=== PATIENT | female | born 1965 | race Caucasian/White ===

== ENCOUNTER → 2022-05-06 15:35 | Outpatient (CLI) | payer OTHER, SELFPAY ==
--- NOTE | ~2022-05-06 | XR_ITS ---
XR chest 2V DATE: 05/06/2022 15:54 INDICATION: Cough TECHNIQUE: 2 views COMPARISON: 09/09/2011 PA and lateral chest FINDINGS: Normal heart size. No hilar or mediastinal enlargement. No pulmonary infiltrate or consolid ation, pleural effusion or pulmonary vascular congestion or pneumothorax. Osteopenia. IMPRESSION: No active cardiopulmonary disease Reviewed, dictated and finalized at location A. SR
== END ==
PROVIDERS: PCP Family Medicine Adolescent Medicine; Visit Provider Physician Assistant
DX: R05.9 Cough, unspecified (principal)
CPT/HCPCS: 71046

== ENCOUNTER 2023-09-16 08:16 | Outpatient (CLI) | payer OTHER, SELFPAY ==
--- NOTE | ~2023-09-16 | NM_ITS ---
EXAMINATION: NM carline stress w perfusion DATE: 09/16/2023 10:43 INDICATION: Other forms of dyspnea. Chest pain. TECHNIQUE: Rest images were obtained following intravenous administration of 9.9 mCi Tc99m tetrofosmi n (Myoview). The patient was infused intravenously with Lexiscan (regadenoson). Then, 29.7 mCi Tc99m tetrofosmin (Myoview) was administered intravenously, and stress images were obtained. Data was recon structed into short axis and horizontal and vertical long axis SPECT images. Gated SPECT images were also obtained. COMPARISON: None. FINDINGS: There is no definite reversible or fixed perfusion abnormality to suggest ischemia or infar ction. There is no segmental wall motion abnormality. Left ventricular ejection fraction measures 6 7%. IMPRESSION: 1. No definite ischemia or infarct. 2. Normal left ventricular ejection fraction measuring 67%. Reviewed, dictated and finalized at location A.
--- NOTE | 2023-09-16 08:26 | EST_ITS ---
Patient Info Name: Karen Troncoso Age: 58 years : 1965 Gender: Female Ht: 59 in Wt: 130 lbs BSA: 1.58 m2 HR: 88 bpm BP: 182 / 112 mmHg Heart Rhythm: Sinus Rhythm Exam Date: 09/16/2023 9:47 AM Exam Location: Echo Lab Patient Status: Outpatient Admit Date: 09/16/2023 Staff Ordering Physician: Katie Ohara APRN Attending Provider: Katie Ohara APRN Exercise Technologist: Kelly Reyes CT Exercise Physician: Gaston Manuel DO Exam Type: CA stress carline w NM Study Info Indications R06.09 - Other forms of dyspnea A regadenoson stress test was performed. Summary 1. 1. Negative lexiscan stress test for ischemic ST changes by ECG criteria. 2. 2. Baseline hypertension. 3. 3. Nuclear scan to follow and will be reported separately. Please correlate with it. 4. 4. Patient informed of the above results. Protocol: Lexiscan Stress ECG Details Stage: REST Duration (min): 5 min : 13 sec HR (bpm): 85 SBP (mmHg): 182 DBP (mmHg): 112 Stage: REST Duration (min): 15 min : 16 sec HR (bpm): 89 SBP (mmHg): 182 DBP (mmHg): 112 Stage: STAGE 1 Duration (min): 0 min : 59 sec HR (bpm): 104 SBP (mmHg): 181 DBP (mmHg): 119 Stage: RECOVERY Duration (min): 1 min : 0 sec HR (bpm): 107 SBP (mmHg): 181 DBP (mmHg): 119 Stage: RECOVERY Duration (min): 2 min : 0 sec HR (bpm): 103 SBP (mmHg): 181 DBP (mmHg): 119 Stage: RECOVERY Duration (min): 3 min : 0 sec HR (bpm): 99 SBP (mmHg): 178 DBP (mmHg): 116 Stage: RECOVERY Duration (min): 3 min : 6 sec HR (bpm): 94 SBP (mmHg): 178 DBP (mmHg): 116 Rest HR: 89 bpm Peak HR: 107 bpm Rest Sys BP: 182 mmHg Peak Sys BP: 181 mmHg Max Pred HR: 163 bpm % Max Pred HR: 66 % Target HR: 139 bpm Max RPP: 19,367 bpm*mmHg Termination Reason: Completed protocol Cardiac Symptoms: Shortness of breath Total Time: 1 min : 0 sec Rest Wilkins BP: 112 mmHg Peak Wilkins BP: 119 mmHg Total Dose: 0.4 mg Resting ECG Sinus rhythm. Stress ECG No ST changes. Arrhythmias None. Report Signatures
== END 2023-09-16 08:17 | disposition home or self-care (01) ==
LOC: ANHCARD 08:18
PROVIDERS: PCP Family Medicine Adolescent Medicine; Visit Provider Nurse Practitioner Family
DX: R06.09 Other forms of dyspnea (principal); I10 Essential (primary) hypertension
CPT/HCPCS: 78452; 93017; A9502; J2785

== ENCOUNTER 2023-09-25 16:24 | Emergency (ER) | payer OTHER, SELFPAY ==
--- NOTE | ~2023-09-25 | CT_ITS ---
EXAMINATION: CT abdomen pelvis w con DATE: 09/25/2023 17:39 INDICATION: Constipation. TECHNIQUE: Computed tomography (CT) of the abdomen and pelvis was performed with 100 mL Omnipaque 350 intravenous contrast. Automated exposure control and iterative reconstruction technique were employe d. The dose-length product was 301.08 mGy-cm. COMPARISON: None. FINDINGS: The visualized portions of the lung bases are clear without pneumonia or pleural effusion. The heart size is normal. No pericardial effusion. There is a small sliding hiatal hernia. The liver, gallbladder, spleen, pancreas, adrenal glands, and right kidney are normal. There is a 10 mm cyst in left kidney. The appendix is normal. There are no pathologically enlarged lymph nodes. There is no f ree intraperitoneal fluid. Aortic atherosclerosis is noted. There is mild thoracic and lumbar spondyl osis. There is osteonecrosis of the femoral heads. IMPRESSION: 1. Small sliding hiatal hernia. Reviewed, dictated and finalized at location E.
[2023-09-25 16:25] VITALS: BP 149/85; PULSE 95; RESP 16; TEMP 36.8; O2SAT 98
[2023-09-25 16:40] LABS: Basophils Absolute Auto 0.1 K/mm3 (0.0-0.1); Basophils Percent Auto 0.8 % (0.2-1.2); Eosinophils Absolute Auto 0.2 K/mm3 (0-0.3); Eosinophils Percent Auto 2.4 % (0-4.4); Hematocrit 40.6 % (37.0-47.0); Hemoglobin 13.4 g/dL (12.0-15.0); Immature Granulocyte Absolute 0.02 K/mm3 (0.00-0.031); Immature Granulocyte Percent A 0.3 % (0-0.5); Lymphocytes Absolute Auto 2.66 K/mm3 (0.9-3.2); Lymphocytes Percent Auto 36.9 % (18.3-44.2); Mean Platelet Volume 10.5 fl (7.4-10.4); Monocytes Absolute Auto 0.8 K/mm3 (0.1-0.6); Monocytes Percent Auto 10.6 % (2.6-8.5); Neutrophils Absolute Auto 3.5 K/mm3 (1.3-6.7); Platelet Count Result 331 k/mm3 (150-375); Red Blood Count 4.46 M/mm3 (4.2-5.4); Red Cell Distribution Width 14.5 % (11.5-14.5); White Blood Count 7.2 K/mm3 (4.5-10.0)
[2023-09-25 16:52] LABS: Alanine Aminotransferase 41 U/L (6-35); Albumin Level 4.4 g/dL (3.5-5.1); Alkaline Phosphatase 130 U/L (38-126); Anion Gap 7 mmol/L (4-12); Aspartate Amino Transferase 49 U/L (14-36); Bilirubin,Total 0.5 mg/dL (0.2-1.3); Blood Urea Nitrogen 6 mg/dL (7-17); Carbon Dioxide 27 mmol/L (22-30); Chloride 102 mmol/L (98-107); Estimated Glomerular Filt Rate > 60; Glucose 102 mg/dL (65-110); Lipase 117 U/L (23-300); Sodium 136 mmol/L (137-145)
[2023-09-25 17:13] LABS: Appearance Urine Clear (Clear); Bilirubin Urine Negative (Negative); Blood Urine Negative (Negative); Color Urine Yellow (Yellow); Glucose Urine UA Negative (Negative); Ketones Urine Negative (Negative); Leukocyte Esterase Ur Negative LEU/UL (Negative); Nitrate Urine Negative (Negative); Protein Urine Negative (Negative); Urobilinogen Urine 0.2 mg/dL (<2.0); pH Urine 8.5 (5.0-9.0)
[2023-09-25 17:14] LABS: Add Urine Microscopic? NO; Specific Grav Ur 1.004 (1.001-1.035)
--- NOTE | 2023-09-25 17:15 | ED.ABDPAIN ---
HPI - Abdominal Pain General Chief Complaint: Abdominal Pain Stated Complaint: major abd issues Time Seen by Provider: 09/25/23 17:04 History of Present Illness HPI narrative: 58-year-old female with a history of bipolar disorder, hyperlipidemia, hypertension presents to the ED for constipation for 9 days. Patient states she has not had full mild movement in 9 days reports generalized abdominal bloating and intermittent pains in her left lower and right lower quadrants. States she has not passed gas in quite a while. She reports having surgeries on her pelvic floor for a prolapse, bilateral oophorectomy and breast surgery. She is reporting some nausea and an episode of emesis yesterday. She denies chest pain or shortness of breath, dysuria hematuria, fever. States she has tried magnesium citrate, enema and p.o. magnesium without any improvement. She has been having some very small firm pebble like stools, her last one was today. Related Data Home Medications Medication Instructions Recorded Confirmed bupropion HCl 100 mg tablet 100 mg PO BID 08/03/21 09/22/23 magnesium 500 mg tablet 500 mg PO BID 09/22/23 09/22/23 melatonin 1.5 mg tablet 3 mg PO HS 09/22/23 09/22/23 Allergies Allergy/AdvReac Type Severity Reaction Status Date / Time No Known Allergies Allergy Mild Verified 09/25/23 16:34 Review of Systems Review of Systems: CONSTITUTIONAL: Denies fever, chills, or sweats. EYES: Denies visual changes, redness, or discharge. ENT: Denies rhinorrhea, congestion, sore throat, or otalgia. CARDIOVASCULAR: Denies chest pain, palpitations, or edema. RESPIRATORY: Denies cough or dyspnea. GASTROINTESTINAL: See HPI GENITOURINARY: Denies dysuria or hematuria. SKIN: Denies rash or itching. MUSCULOSKELETAL: Denies back pain, joint pain, or myalgia. NEUROLOGIC: Denies headache, numbness, or weakness. PSYCHIATRIC: Denies anxiety or depression. [facility] Surgical History Surgical History History of oophorectomy Bilateral at age 39 History of rectal surgery prolapse repair Family History Family History Mother Family history of Alzheimer's disease Sibling Heart disease 2 brothers with CAD and quadruple bypasses in their 50s Other Hypertension Social History Social History Years smoked: 7 Smoking status: Current every day smoker Tobacco type: cigarettes and e-cigarettes/vaping Additional smoking assessment comments: VAPING 12 YEARS NOW Alcohol intake: former Alcohol use details: Patient currently drinks 750 mL bottle Vodka every 24 hours for the past 3 years. Substance use: former Substance use type: does not use Lack of Transportation: No Lack of Food: Sometimes True Concerned About Future Housing: No Difficulty Paying Gas/Electric Bills: No Difficulty Paying for Meds: No Currently Unemployed: No Education: Associate Degree Difficulty w/ Childcare or Family Care: No Living arrangements: with family Additional living arrangements comments: Lives with partner Gender identity (if verbalized by the patient): Female Sexual Orientation (if Verbalized by the Patient): Lesbian, Mondragon, or Homosexual Spiritual care concerns: No Agree to blood products: Yes Exam Narrative: GENERAL: Well-appearing, well-nourished, and in no acute distress. HEAD: Normocephalic, atraumatic. EYES: PERRLA and EOMI. ENT: Nares clear, no rhinorrhea or epistaxis. Mucous membranes moist. NECK: Supple. CHEST: Clear to auscultation. No respiratory distress. HEART: Regular rate and rhythm. No murmur heard. Normal peripheral pulses. ABDOMEN: Hyperactive bowel sounds. Abdomen soft with mild tenderness in the right lower quadrant and left lower quadrants. No rebound, guarding or rigidity. No CVA tenderness. EXTREMITIES: Normal rang
== END 2023-09-25 19:15 | disposition home or self-care (01) ==
PROVIDERS: Emergency Medicine; Emergency Provider Physician Assistant; PCP Family Medicine Adolescent Medicine
DX: K59.00 Constipation, unspecified (principal); K44.9 Diaphragmatic hernia without obstruction or gangrene; F17.210 Nicotine dependence, cigarettes, uncomplicated
CPT/HCPCS: 36415; 74177; 80053; 81003; 83690; 85025; 99284; Q9967

== ENCOUNTER 2023-09-27 00:54 | Day surgery (SDC) | payer OTHER, SELFPAY ==
[2023-09-22 10:37] VITALS: BMI 26.2
[2023-09-27 11:53] VITALS: BP 171/93; PULSE 84; RESP 19; TEMP 36.5; O2SAT 98
[2023-09-27] MEDS: LACTATED RINGERS 1,000 ML 150 ML IV CONT (12:02)
--- NOTE | 2023-09-27 12:29 | WPDANESEPPF ---
Anes - Initial Pre Proc Eval Procedure: Operation Date: 09/27/23 13:00 Proposed Procedures p Esophagogastroduodenoscopy - Moo Davalos MD Date/Time: 09/27/23 12:29 Surgeon: Moo Davalos MD Pre Op Diagnosis: GERD, Melena Patient Data Age: 58 Gender: F Height: 1.5 m Weight: 60.2 kg Last Vital Signs Temp 97.7 F 09/27/23 11:53 Pulse 84 09/27/23 11:53 Resp 19 09/27/23 11:53 BP 171/93 H 09/27/23 11:53 Pulse Ox 98 09/27/23 11:53 O2 Del Method Room Air 09/27/23 11:53 Allergies Allergy/AdvReac Type Severity Reaction Status Date / Time No Known Allergies Allergy Mild Verified 09/27/23 11:52 Home Medications Medication Instructions Recorded Confirmed Type bupropion HCl 100 mg tablet 100 mg PO BID 08/03/21 09/22/23 History albuterol sulfate 2.5 mg/3 mL 2.5 mg (3 mL) inhalation Q6H PRN 04/28/22 09/22/23 Rx (0.083 %) solution for nebulization shortness of breath or wheezing #75 mL albuterol sulfate 90 mcg/actuation 2 inh inhalation Q4H PRN shortness 06/16/22 09/22/23 Rx aerosol inhaler of breath or wheezing #8.5 grams valacyclovir 1 gram tablet 2,000 mg PO Q12H 1 day #4 tabs 03/23/23 09/22/23 Rx paroxetine HCl 20 mg tablet 20 mg PO BID #180 tabs 04/06/23 09/22/23 Rx fluticasone propionate 50 1 spray intranasal DAILY #16 grams 05/25/23 09/22/23 Rx mcg/actuation nasal spray,suspension lisinopril 20 1 tablet PO DAILY #90 tabs 05/25/23 09/22/23 Rx mg-hydrochlorothiazide 12.5 mg tablet rosuvastatin 20 mg tablet 20 mg PO DAILY #90 tabs 05/25/23 09/22/23 Rx alprazolam 0.5 mg tablet 0.5 mg PO BID PRN anxiety #20 tabs 07/27/23 09/22/23 Rx alirocumab 75 mg/mL subcutaneous 75 mg subcut Q14D #2 mL 08/18/23 09/22/23 Rx pen injector (Praluent Pen) omeprazole 40 mg capsule,delayed See Rx Instructions .Route 08/18/23 09/22/23 Rx release .COMPLEX #180 caps magnesium 500 mg tablet 500 mg PO BID 09/22/23 09/22/23 History melatonin 1.5 mg tablet 3 mg PO HS 09/22/23 09/22/23 History docusate sodium 50 mg capsule 50 mg PO BID #20 caps 09/25/23 Rx ondansetron 4 mg disintegrating 4 mg PO Q8H #20 tabs 09/25/23 Rx tablet polyethylene glycol 3350 17 17 g PO DAILY #119 grams 09/25/23 Rx gram/dose oral powder Patient hx anesthesia problems: none Family hx anesthesia problems: none Results Review: All pre-operative results and documents have been reviewed as part of the pre-operative evaluation. [facility] Surgical History Surgical History History of oophorectomy Bilateral at age 39 History of rectal surgery prolapse repair Family History Family History Mother Family history of Alzheimer's disease Sibling Heart disease 2 brothers with CAD and quadruple bypasses in their 50s Other Hypertension Social History Social History Years smoked: 7 Smoking status: Current every day smoker Tobacco type: cigarettes and e-cigarettes/vaping Additional smoking assessment comments: VAPING 12 YEARS NOW Alcohol intake: former Alcohol use details: Patient currently drinks 750 mL bottle Vodka every 24 hours for the past 3 years. Substance use: former Substance use type: does not use Lack of Transportation: No Lack of Food: Sometimes True Concerned About Future Housing: No Difficulty Paying Gas/Electric Bills: No Difficulty Paying for Meds: No Currently Unemployed: No Education: Associate Degree Difficulty w/ Childcare or Family Care: No Living arrangements: with family Additional living arrangements comments: Lives with partner Gender identity (if verbalized by the patient): Female Sexual Orientation (if Verbalized by the Patient): Lesbian, Mondragon, or Homosexual Spiritual care concerns: No Agree to blood products: Yes [place] - Dave Fi
--- NOTE | 2023-09-27 12:48 | PM.HPGS ---
History of Present Illness History of Present Illness Consent: Risks, benefits, and alternatives have been discussed and questions answered. Patient agrees to proceed with procedure. Chief complaint: GERD Narrative: Karen Troncoso is a 58 year old female with gerd and non-cardiac chest pain Review of Systems Review of Systems: All systems reviewed & are unremarkable except as noted in HPI and below PMFSH Past Medical History Medical History (Updated 09/27/23 @ 12:50 by Moo Davalos MD) Non-cardiac chest pain Surgical History Surgical History History of oophorectomy Bilateral at age 39 History of rectal surgery prolapse repair Family History Family History Mother Family history of Alzheimer's disease Sibling Heart disease 2 brothers with CAD and quadruple bypasses in their 50s Other Hypertension Social History Social History Years smoked: 7 Smoking status: Current every day smoker Tobacco type: cigarettes and e-cigarettes/vaping Additional smoking assessment comments: VAPING 12 YEARS NOW Alcohol intake: former Alcohol use details: Patient currently drinks 750 mL bottle Vodka every 24 hours for the past 3 years. Substance use: former Substance use type: does not use Lack of Transportation: No Lack of Food: Sometimes True Concerned About Future Housing: No Difficulty Paying Gas/Electric Bills: No Difficulty Paying for Meds: No Currently Unemployed: No Education: Associate Degree Difficulty w/ Childcare or Family Care: No Living arrangements: with family Additional living arrangements comments: Lives with partner Gender identity (if verbalized by the patient): Female Sexual Orientation (if Verbalized by the Patient): Lesbian, Mondragon, or Homosexual Spiritual care concerns: No Agree to blood products: Yes Meds Home Medications and Allergies Home Medications Medication Instructions Recorded Confirmed Type bupropion HCl 100 mg tablet 100 mg PO BID 08/03/21 09/22/23 History albuterol sulfate 2.5 mg/3 mL 2.5 mg (3 mL) inhalation Q6H PRN 04/28/22 09/22/23 Rx (0.083 %) solution for nebulization shortness of breath or wheezing #75 mL albuterol sulfate 90 mcg/actuation 2 inh inhalation Q4H PRN shortness 06/16/22 09/22/23 Rx aerosol inhaler of breath or wheezing #8.5 grams valacyclovir 1 gram tablet 2,000 mg PO Q12H 1 day #4 tabs 03/23/23 09/22/23 Rx paroxetine HCl 20 mg tablet 20 mg PO BID #180 tabs 04/06/23 09/22/23 Rx fluticasone propionate 50 1 spray intranasal DAILY #16 grams 05/25/23 09/22/23 Rx mcg/actuation nasal spray,suspension lisinopril 20 1 tablet PO DAILY #90 tabs 05/25/23 09/22/23 Rx mg-hydrochlorothiazide 12.5 mg tablet rosuvastatin 20 mg tablet 20 mg PO DAILY #90 tabs 05/25/23 09/22/23 Rx alprazolam 0.5 mg tablet 0.5 mg PO BID PRN anxiety #20 tabs 07/27/23 09/22/23 Rx alirocumab 75 mg/mL subcutaneous 75 mg subcut Q14D #2 mL 08/18/23 09/22/23 Rx pen injector (Praluent Pen) omeprazole 40 mg capsule,delayed See Rx Instructions .Route 08/18/23 09/22/23 Rx release .COMPLEX #180 caps magnesium 500 mg tablet 500 mg PO BID 09/22/23 09/22/23 History melatonin 1.5 mg tablet 3 mg PO HS 09/22/23 09/22/23 History docusate sodium 50 mg capsule 50 mg PO BID #20 caps 09/25/23 Rx ondansetron 4 mg disintegrating 4 mg PO Q8H #20 tabs 09/25/23 Rx tablet polyethylene glycol 3350 17 17 g PO DAILY #119 grams 09/25/23 Rx gram/dose oral powder Allergies Allergy/AdvReac Type Severity Reaction Status Date / Time No Known Allergies Allergy Mild Verified 09/27/23 11:52 Vital Signs Vital Signs - 24 hr 09/27/23 11:53 Temperature 97.7 F Pulse Rate 84 Respiratory Rate 19 Blood Pressure 171/93 H Pulse Oximetry 98 Oxygen Delivery
[2023-09-27 13:00] VITALS: BP 131/78; PULSE 82; RESP 21; O2SAT 98
[2023-09-27 13:10] VITALS: BP 135/86; PULSE 83; RESP 19; O2SAT 98
[2023-09-27 13:20] VITALS: BP 163/99; PULSE 81; RESP 19; O2SAT 98
== END 2023-09-27 13:36 | disposition home or self-care (01) ==
PROVIDERS: PCP Family Medicine Adolescent Medicine; Visit Provider Internal Medicine Gastroenterology
PROC: 0DJ08ZZ Inspection of Upper Intestinal Tract, Via Natural or Artificial Opening Endoscopic (ICD-10-PCS; CPT 43235; principal; 2023-09-27 13:00)
DX: K29.80 Duodenitis without bleeding (principal); K29.50 Unspecified chronic gastritis without bleeding; K44.9 Diaphragmatic hernia without obstruction or gangrene; Z79.51 Long term (current) use of inhaled steroids
CPT/HCPCS: 43239; 88305; J2704; J7120

== ENCOUNTER 2023-11-01 08:41 | Outpatient (CLI) | payer OTHER, SELFPAY ==
--- NOTE | ~2023-11-01 | US_ITS ---
Limited Abdominal Sonogram: Real-time sonographic imaging of the right upper quadrant was performed. Clinical History: Epigastric pain Findings: The liver appears normal with no evidence of mass lesion or bile duct dilatation. Main por balta vein demonstrates normal direction of flow. The gallbladder is well distended, and appears normal with no evidence of gallstone or wall thickening. The common bile duct measures 4 mm. The visualize d pancreas, aorta, and IVC are unremarkable. Impression: No significant abnormality seen. Reviewed, dictated and finalized at location . Impression: No significant abnormality seen.
== END 2023-11-01 08:42 ==
LOC: GOSHIMG 08:41
PROVIDERS: PCP Family Medicine Adolescent Medicine; Visit Provider Surgery
DX: R10.13 Epigastric pain (principal)
CPT/HCPCS: 76705

== ENCOUNTER 2023-11-07 12:11 | Outpatient (CLI) | payer OTHER, SELFPAY ==
--- NOTE | ~2023-11-07 | NM_ITS ---
EXAMINATION: NM hepatobiliary w pharm DATE: 11/07/2023 14:37 INDICATION: Epigastric pain COMPARISON: None. TECHNIQUE: 5 mCi Tc-99m mebrofenin (Choletec) was administered intravenously. Scintigraphic images o f the abdomen were obtained for one hour. 1.3 mcg sincalide (Kinevac) was administered by slow intrav enous infusion, and imaging was continued for 30 minutes. Gallbladder ejection fraction was calculate d by the technologist. FINDINGS: There is normal clearance of radiotracer from the blood pool. There is homogeneous tracer uptake by t he liver. Activity progresses to the gallbladder and bowel. The gallbladder ejection fraction (GBEF) is 19% (normal 10-90%, but most patient with gallbladder dysfunction have GBEF < 35% which does over lap with the normal range). IMPRESSION: 1. Gallbladder ejection fraction is at the lower limits of normal. This could be normal but is also within the range of overlap with gallbladder dysfunction or chronic cholecystitis in the appropriate clinical setting. Reviewed, dictated and finalized at location A.
== END 2023-11-07 12:12 | disposition home or self-care (01) ==
LOC: ANHIMG 12:14
PROVIDERS: PCP Family Medicine Adolescent Medicine; Visit Provider Surgery
DX: R10.13 Epigastric pain (principal)
CPT/HCPCS: 78227; A9537; J2805

== ENCOUNTER 2023-12-13 11:26 | Outpatient (CLI) | payer OTHER, SELFPAY ==
[2023-12-13 12:28] LABS: Alanine Aminotransferase 32 U/L (6-35); Albumin Level 4.2 g/dL (3.5-5.1); Alkaline Phosphatase 152 U/L (38-126); Amylase 56 U/L (30-110); Aspartate Amino Transferase 41 U/L (14-36); Bilirubin,Total 0.6 mg/dL (0.2-1.3); Lipase 84 U/L (23-300)
== END 2023-12-13 11:27 | disposition home or self-care (01) ==
PROVIDERS: PCP Family Medicine Adolescent Medicine; Visit Provider Surgery
DX: K81.1 Chronic cholecystitis (principal); Z01.818 Encounter for other preprocedural examination
CPT/HCPCS: 36415; 80076; 82150; 83690

== ENCOUNTER 2023-12-15 01:52 | Day surgery (SDC) | payer OTHER, SELFPAY ==
--- NOTE | 2023-12-07 16:51 | SUR.PREOP ---
Report to the Outpatient Waiting Room, entrance under the green pavilion located off [facility], at time 1000 on date 12/15/23. Planned Procedure Time: 1200. Time changes happen often and if your time is changed the preop area will call you the afternoon before. - You and your visitor will be asked to self-screen and do not enter if you have any COVID symptoms. - A mask is optional within the hospital at this time. Patients may have clear liquids (water, carbonated beverages, clear teas, apple juice) until 3 hours prior to surgery with a maximum of 20 ounces. - NO CLEAR LIQUIDS AFTER 0900 - No food from midnight until time of surgery - Infants may have breast milk until 4 hours before surgery, formula 6 hours prior to surgery. - Children will be allowed to drink immediately following surgery. If applicable, please bring a bottle or sippy cup to assist with drinking. Juice, water, soda, and popsicles are readily available. For infants on formula, please bring formula the day of surgery. Pacifiers are allowed. Take the following medications with a SIP of water the morning of surgery: BUPROPION, PAROXETINE, TEMAZEPAM DO NOT STOP ANY OF YOUR OTHER PRESCRIPTION MEDICATIONS PRIOR TO SURGERY ?EXCEPT THE FOLLOWING Medications to discontinue per physician STOP VITAMINS & SUPPLEMENTS BEGINNING 12/12/23 Date to take last dose Please no make-up, nail mongolian, hairspray, perfume, deodorant, or body powder the day of surgery. No jewelry (including any body piercings) or valuables the day of surgery, leave them at home. Please take a shower or bath the night before, or the morning of, surgery with an antibacterial soap. Wear comfortable, loose fitting clothing. Children are encouraged to wear pajamas. - Jewelry must be removed prior to entering the operating room. Rings and piercings that are not removed may be cut off. - The hospital will not accept responsibility for valuables. - Please leave all valuables, including medications, at home the day of surgery. If you are going home after surgery, a licensed driver recruiter must drive you home. - NO public transportation without another adult if you receive anesthesia. - We recommend that an adult stay with you for 24 hours following discharge. - We also recommend that you do not drive, make important decision, drink alcoholic beverages, or take any drugs that were not prescribed by your health care provider for at least 24 hours after your discharge time. For Pediatric surgeries, we recommend two adults accompany the child home. Follow any additional instructions given to you from your surgeon. If you or anyone in your household have experienced Covid symptoms in the past week, please notify your surgeon or the nurse liaison at the phone number below for possible testing. Telephone instructions given to PARVEZ WOOD and asked if any additional questions and then verbalized understanding. Patient advised to call surgeon office or pre surgery nurse liaison [phone] if any additional questions.
[2023-12-07 17:06] VITALS: BMI 27.3
[2023-12-15] VITALS (10 sets, daily range): BP systolic 120–149; BP diastolic 71–98; PULSE 82–111; RESP 12–16; TEMP 36.5–37.2; O2SAT 90–97; BMI 26.2
[2023-12-15] MEDS: KETOROLAC 15 MG/ML VIAL (*BKC) IV PUSH (10:50)
[2023-12-15] MEDS: LACTATED RINGERS 1,000 ML 30 ML IV CONT ×2 (10:50→13:54)
[2023-12-15] MEDS: ACETAMINOPHEN 500 MG TABLET 1000 MG PO (10:50)
--- NOTE | 2023-12-15 11:21 | WPDANESEPPF ---
Anes - Initial Pre Proc Eval Procedure: Operation Date: 12/15/23 12:00 Proposed Procedures p Laparoscopic Cholecystectomy - Keyur Belle MD Date/Time: 12/15/23 11:21 Surgeon: Keyur Belle MD Pre Op Diagnosis: acalculous chronic cholecystitis Patient Data Age: 58 Gender: F Height: 1.5 m Weight: 59 kg Last Vital Signs Temp 97.7 F 12/15/23 10:59 Pulse 94 12/15/23 10:59 Resp 16 12/15/23 10:59 BP 143/80 H 12/15/23 10:59 Pulse Ox 97 12/15/23 10:59 Allergies Allergy/AdvReac Type Severity Reaction Status Date / Time No Known Allergies Allergy Mild Verified 12/07/23 17:01 Home Medications Medication Instructions Recorded Confirmed Type bupropion HCl 100 mg tablet 100 mg PO BID 08/03/21 12/07/23 History paroxetine HCl 20 mg tablet 20 mg PO BID #180 tabs 04/06/23 12/07/23 Rx omeprazole 40 mg capsule,delayed See Rx Instructions .Route 08/18/23 12/07/23 Rx release .COMPLEX #180 caps magnesium 500 mg tablet 500 mg PO BID 09/22/23 12/07/23 History melatonin 1.5 mg tablet 3 mg PO HS 09/22/23 12/07/23 History linaclotide 290 mcg capsule 290 mcg PO DAILY 1 month #30 caps 10/21/23 12/07/23 Rx (Linzess) alirocumab 75 mg/mL subcutaneous 75 mg subcut Q14D #2 mL 11/04/23 12/07/23 Rx pen injector (Praluent Pen) temazepam 15 mg capsule 15 mg PO QHS PRN sleep #30 caps 11/23/23 12/07/23 Rx valacyclovir 1 gram tablet 2,000 mg PO Q12H PRN BREAKOUT ON 12/07/23 12/07/23 History NOSE Laboratory Tests 12/15/23 10:36 Total Bilirubin Pending Direct Bilirubin Pending AST Pending ALT Pending Alkaline Phosphatase Pending Total Protein Pending Albumin Pending Patient hx anesthesia problems: none Family hx anesthesia problems: none Results Review: All pre-operative results and documents have been reviewed as part of the pre-operative evaluation. [facility] Past Medical History Medical History Anemia Anxiety Asthma GERD (gastroesophageal reflux disease) Hypertension IBS (irritable bowel syndrome) Non-cardiac chest pain Surgical History Surgical History History of oophorectomy Bilateral at age 39 History of rectal surgery prolapse repair Hx of breast reduction, elective ~ 2003 Family History Family History Mother Family history of Alzheimer's disease Sibling Heart disease 2 brothers with CAD and quadruple bypasses in their 50s Other Hypertension Social History Social History Years smoked: 7 Smoking status: Current every day smoker Tobacco type: cigarettes and e-cigarettes/vaping Additional smoking assessment comments: VAPING 12 YEARS NOW Alcohol intake: former Alcohol use details: SOBER SINCE 08/10/22 Substance use: never Substance use type: does not use Do You Feel Safe in your Home?: Yes Lack of Transportation: No Lack of Food: Sometimes True Current Housing: I Have Housing Concerned About Future Housing: No Difficulty Paying Gas/Electric Bills: No Difficulty Paying for Meds: No Currently Unemployed: No Education: Associate Degree Difficulty w/ Childcare or Family Care: No Living arrangements: with family Additional living arrangements comments: Lives with partner Gender identity (if verbalized by the patient): Female Sexual Orientation (if Verbalized by the Patient): Lesbian, Mondragon, or Homosexual Spiritual care concerns: No Agree to blood products: Yes Anes - Eval Final PreProcedure Day of Procedure 12/15/23 11:21 Patient weight: normal Heart: regular rate and rhythm Lungs: clear to auscultation Airway: Mallampati scale class III Neurological: alert and oriented Last oral intake: >/= 8 hours ASA classification: I
[2023-12-15 11:34] LABS: Alanine Aminotransferase 31 U/L (6-35); Alkaline Phosphatase 143 U/L (38-126); Aspartate Amino Transferase 44 U/L (14-36); Bilirubin,Total 0.6 mg/dL (0.2-1.3)
--- NOTE | 2023-12-15 12:20 | WPDHPUPDATE1 ---
History and Physical Update Update Date/Time: 12/15/23 12:20 History and Physical has been reviewed, including an updated exam of the patient. There are NO changes in the patient's condition. Risks, benefits, and alternatives have been discussed and questions answered. Patient agrees to proceed with procedure.
[2023-12-15] MEDS: ceFAZolin 2 GM/D5W 50 ML 2 GM/50 ML BAG IVPB (12:28)
[2023-12-15] MEDS: BUPIVACAINE/EPINEPHRINE 0.5% 10 ML VIAL 30 ML INFILTRATE (12:49)
[2023-12-15] MEDS: fentaNYL CITRATE INJ (*CRX) 100 MCG/2 ML VIAL 25 MCG IV PUSH ×8 (14:11→14:44)
--- NOTE | 2023-12-15 14:15 | P.OP_ITS ---
Procedure Note - Detailed Date of Procedure 12/15/23 Pre-op Diagnosis acalculous chronic cholecystitis Post-op Diagnosis Same Procedure Performed Laparoscopic cholecystectomy Surgeon Keyur Belle MD Last Sorter [facility] Anesthesia General and Local Indications Patient is a 58-year-old woman who is an alcoholic but has been abstinent for a year. She has been having abrupt onset of sharp epigastric abdominal pain associated with nausea and sometimes emesis. This can wake her up at night and also occurs sometimes after eating. She does have a hiatal hernia and heartburn symptoms but those have been improved with omeprazole 40 mg daily. She had ultrasound of her gallbladder which was normal. Her hepatobiliary scan with foam arm showed a low gallbladder ejection fraction of only 19%. She had an EGD which showed a moderate hiatal hernia but no esophagitis. She is taken to [facility] at this time for laparoscopic cholecystectomy for acalculous chronic cholecystitis. Findings Mild chronic inflammation, no stones noted. Liver appeared normal. No biliary ductal dilatation. Description of Procedure Patient was taken to surgery and induced into general anesthesia. The abdomen is prepped and draped. Trocars were placed in usual fashion using Zep Solar optical trocars and a 5 mm camera. The varies needle was used to introduce CO2 insufflation prior to any trocars. Patient was then placed in reverse Trendelenburg. The gallbladder was decompressed with a laparoscopic aspirator. The cholecystotomy was closed with a Vicryl endoloop. The gallbladder was then retracted anterosuperiorly. Dissection was carried out in the cholecystohepatic triangle. Cautery was used for hemostasis. The cystic duct and cystic artery were dissected out clearly. The gallbladder was dissected off the liver at its lower half. Critical view was achieved. We then securely clipped and divided the cystic duct and cystic artery. The gallbladder was then further dissected free of its attachments to the liver. Once was free, the gallbladder was placed in an Endo-Catch bag and retrieved easily through the 10 11 epigastric trocar site. The epigastric trocar was then replaced. We reviewed the gallbladder fossa and right upper quadrant. Irrigation and suctioning were carried out repeatedly. A little bit of additional cautery was used. Eventually all was quite dry with no evidence of bleeding or bile leakage. We then evacuated CO2 and removed the trocar sleeves. Skin wounds were closed with subcuticular 4-0 Monocryl skin suture. Patient was awakened and taken to recovery in good condition. Sponge and needle counts were correct x2. Estimated Blood Loss -5 Drains No Pathology Yes (Gallbladder) Complications None Condition Stable Disposition PACU [facility] Billing Surgery - Charge Forward: Surgery Billing (Laparoscopic cholecystectomy)
[2023-12-15] MEDS: oxyCODONE HCL (*CRX) 5 MG TAB IR PO (14:39)
[2023-12-15] MEDS: diphenhydrAMINE HCl INJ 50 MG/ML VIAL 12.5 MG IV PUSH (14:48)
[2023-12-15] MEDS: KETOROLAC 30 MG/ML VIAL (*BKC) IV PUSH (15:25)
== END 2023-12-15 16:26 | disposition home or self-care (01) ==
PROVIDERS: PCP Family Medicine Adolescent Medicine; Visit Provider Surgery
PROC: 0FT44ZZ Resection of Gallbladder, Percutaneous Endoscopic Approach (ICD-10-PCS; CPT 47562; principal; 2023-12-15 12:00)
DX: K81.1 Chronic cholecystitis (principal); I10 Essential (primary) hypertension; F41.9 Anxiety disorder, unspecified; D64.9 Anemia, unspecified; J45.909 Unspecified asthma, uncomplicated; K21.9 Gastro-esophageal reflux disease without esophagitis; K58.9 Irritable bowel syndrome, unspecified; F17.210 Nicotine dependence, cigarettes, uncomplicated; G89.18 Other acute postprocedural pain; Z79.51 Long term (current) use of inhaled steroids; Z79.85 Long-term (current) use of injectable non-insulin antidiabetic drugs; Z98.890 Other specified postprocedural states; Z82.49 Family history of ischemic heart disease and other diseases of the circulatory system
CPT/HCPCS: 47562; 36415; 80076; 82150; 83690; 88304; A9270; J0330; J0690; J1100; J1170; J1200; J1885; J2250; J2405; J2704; J3010; J7120

== ENCOUNTER 2024-05-30 11:30 | Outpatient (CLI) | payer OTHER, SELFPAY ==
--- NOTE | ~2024-05-30 | XR_ITS ---
Thoracic spine: Clinical Indication: Back pain AP and lateral views were performed. No fracture is seen. There is normal alignment of the vertebrae. The intervertebral disc spaces demo nstrate mild degenerative change throughout the thoracic spine. Paravertebral soft tissues appear nor mal. 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 Reviewed, dictated and finalized at [facility]. 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
--- OUTSIDE RECORDS SUMMARY | 2024-05-30 13:06 | XMS_ITS | Clinical Summary ---
Author Organization [facility] Address [facility] [place] [address] Care Team Providers Care Steam Setter Name Role Phone Rosi Bolanos MD Primary Care Provider [phone] Social History Tobacco Use Types Packs/Day Years Used Date Smoking Tobacco: Never Assessed Comments Unknown Sex and Gender Information Value Date Recorded Sex Assigned at Not on file Legal Sex Female 7:28 PM CDT Gender Identity Not on file Sexual Orientation Not on file Plan of Treatment Health Maintenance Due Date Last Done Comments Cervical Cancer Screening Pa p Smear (Age 30 to 64) Every 3 Years 1966 Colorectal Cancer Screening Colonoscopy (10 Years) 1966 Annual Physical 1969 Hepatitis C 02/27/1984 DTaP, Tdap and Td Vaccines ( 1 - Tdap) 1985 Hepatitis B Vaccines (1 of 3 - 19+ 3-dose series) 1985 Cervical Cancer Screening Pa p with HPV Testing (Age 30 to 64) Every 5 Years 02/27/1996 Cervical Cancer Screening with HPV 02/27/1996 Mammogram Screening 2006 Zoster Vaccines (1 of 2) 02/27/2016 COVID-19 Vaccine (2023-2 5 season) 2023 Influenza Adult (#1) 2024 Meningococcal B Vaccine Aged Out No l onger eligible based on patient's age to complete this topic Meningococcal Vaccine Aged Out No oziel koki eligible based on patient's age to complete this topic Pneumococcal Vaccine: Pediat rics (0 to 5 Years) and At-Risk Patients (6 to 64 Years) Aged Out No longer eligible b ased on patient's age to complete this topic RSV Immunizations Under 20 Months Aged Out No longer eligible based on patient's age to complete this topic Care Teams Steam Setter Relationship Specialty Start Date End Date Rosi Bolanos MD [address] [place] [address] [phone] PCP - General 06/11/10
== END 2024-05-30 11:31 | disposition home or self-care (01) ==
PROVIDERS: PCP Family Medicine Adolescent Medicine; Visit Provider Nurse Practitioner Family
DX: R07.89 Other chest pain (principal); M51.34 Other intervertebral disc degeneration, thoracic region; G89.29 Other chronic pain
CPT/HCPCS: 72070

== ENCOUNTER 2024-06-17 16:19 | Emergency (ER) | payer OTHER, SELFPAY ==
--- OUTSIDE RECORDS SUMMARY | 2024-06-17 16:21 | XMS_ITS | Clinical Summary ---
Author Organization [facility] Address [facility] [place] [address] Care Team Providers Care Rougher Helper Name Role Phone Rosi Bolanos MD Primary Care Provider [phone] Social History Tobacco Use Types Packs/Day Years [...] age to complete this topic Care Teams Rougher Helper Relationship Specialty Start Date End Date Rosi Bolanos MD [address] [place] [address] [phone] PCP - General 06/11/10
--- OUTSIDE RECORDS SUMMARY | 2024-06-17 16:21 | XMS_ITS | Patient Health Record ---
Author Organization [facility] Address [address] [place] [address] Care Team Providers Care Wardrobe Specialist Name Role Phone Salena Dorsey Primary Care Provider Allergies No Known Allergies Reason For Referral No Information Medications Medication SIG (Take, Route, Fr equency, Duration) Notes Start Date End Date Status Naltrexone HCl 50 MG TAKE 1 TABLET BY MO [facility] DAILY. START TAKING ONCE DAILY AT BEDTIME AFTER FINISHING COURSE OF LIBRIUM Oral for 30 Days Acti ve Cetirizine HCl 10 MG 1 tablet Orally Onc e a day for 14 days 08/13/2022 Active buPROPion HCl 100 MG Oral for 90 Days Active Omeprazole 40 MG TAKE 1 CAPSULE BY MO [facility] TWICE A DAY Oral for 90 Days Active PARoxetine HCl 20 MG Oral for 90 Days Active Topiramate 100 MG Oral for 90 Days Active Social History Tobacco Use: Social History Observation Description Date Details (start date - stop date) Unknown Sex Assigned At : Social History Observation Description Sex Assigned At Female Dont use, Tobacco Use/Smoking Question Answer Notes Are you a Uses tobacco in other forms Problems Problem Type SNOMED Code ICD Code Onset Dates Problem Status W/U Status Risk Notes Problem Obesity (743142501) Obesity (BMI 30-39.9) (E66.9) Active confirmed Plan Of Treatment No Information Insurance Providers Payer Name Payer Address Payer Phone Subscriber Number Group Number Insured Name Patient Relationship to Insured Coverage Start Date Coverage End Date [facility] [address] [address] [place] [address] [id number] Jacoby Troncosoie Self - patient is the insured 3 Medical (General) History Medical History History ICD Code Alcohol use disorder Surgical History Surgery Date(Month/Year) Ovary removal 04/2012 Hospitalization History Reason Date(Month/Year) Slit wrist 05/2000 Slit wrist 12/2004 Slit wrist 04/2009
--- NOTE | 2024-06-17 16:58 | PC.NURSE ---
Not found when called for in ED.
[2024-06-17 17:03] VITALS: BP 152/90; PULSE 109; RESP 16; TEMP 36.6; O2SAT 100
--- NOTE | 2024-06-17 17:13 | PC.NURSE ---
pt declined to be seen due to wait time, pt states she was going somewhere else less busy , pt ambulated out w/ friend in NAD
--- OUTSIDE RECORDS SUMMARY | 2024-06-17 17:55 | XMS_ITS | Clinical Summary ---
Author Organization [facility] Address [facility] [place] [address] Care Team Providers Care Diesel Truck Technician Name Role Phone Rosi Bolanos MD Primary Care Provider [phone] Social History Tobacco Use Types Packs/Day Years [...] age to complete this topic Care Teams Diesel Truck Technician Relationship Specialty Start Date End Date Rosi Bolanos MD [address] [place] [address] [phone] PCP - General 06/11/10
== END 2024-06-17 17:56 | disposition left against medical advice (07) ==
LOC: ANHED 17:53
PROVIDERS: PCP Family Medicine Adolescent Medicine
DX: R05.9 Cough, unspecified (principal)
CPT/HCPCS: 99199

== ENCOUNTER 2024-07-13 08:47 | Outpatient (CLI) | payer OTHER, SELFPAY ==
--- NOTE | ~2024-07-13 | XR_ITS ---
EXAMINATION: XR UGIAC wo kub DATE: 07/13/2024 09:30 INDICATION: Diaphragmatic hernia without obstruction TECHNIQUE: The patient drank thick barium, gas-producing crystals, and thin barium. A total of 840 fl uoroscopic images of the esophagus, stomach, and proximal small bowel were obtained. Fluoroscopy expo sure time was 1.5 minutes. Total DAP was 8.772 Gycm^2. COMPARISON: None. FINDINGS: The mid to distal esophagus is mildly patulous but without mass or stricture and with relat ively normal esophageal motility. There is a moderate-sized sliding-type hiatal hernia with the gastr oesophageal junction 8 cm above level of the diaphragm. There was recurrent gastroesophageal reflux w hich is both spontaneous and reproduced with provocative maneuvers. There is a small diverticulum odilia sing from the third portion of the duodenum. The stomach and proximal small bowel are otherwise denae l. IMPRESSION: 1. Moderate-sized sliding-type hiatal hernia with associated gastroesophageal reflux. Reviewed, dictated and finalized at location A. IMPRESSION: 1. Moderate-sized sliding-type hiatal hernia with associated gastroesophageal r eflux.
--- OUTSIDE RECORDS SUMMARY | 2024-07-13 09:42 | XMS_ITS | Clinical Summary ---
Author Organization [facility] Address [facility] [place] [address] Care Team Providers Care Scow Derrick Operator Name Role Phone Rosi Bolanos MD Primary Care Provider [phone] Social History Tobacco Use Types Packs/Day Years [...] age to complete this topic Care Teams Scow Derrick Operator Relationship Specialty Start Date End Date Rosi Bolanos MD [address] [place] [address] [phone] PCP - General 06/11/10
--- OUTSIDE RECORDS SUMMARY | 2024-07-13 09:42 | XMS_ITS | Patient Health Record ---
Author Organization [facility] Address [address] [place] [address] Care Team Providers Care Auto Striper Name Role Phone Salena Dorsey Primary Care Provider Allergies No Known Allergies Reason For Referral No Information Medications Medication SIG (Take, Route, Fr equency, Duration) Notes Start Date End Date Status Naltrexone HCl 50 MG TAKE 1 TABLET BY MO [facility] DAILY. START TAKING ONCE DAILY AT BEDTIME [...] Status W/U Status Risk Notes Problem Obesity ([id number]) Obesity (BMI 30-39.9) (E66.9) Active confirmed Plan Of Treatment No Information Insurance Providers Payer Name Payer Address Payer Phone Subscriber Number Group Number Insured Name Patient Relationship to Insured Coverage Start Date Coverage End Date [facility] [address] [address] [place] [address] [phone] [id number] Anastasiia Troncoso Self - patient is the insured 3 Medical (General) History Medical History History ICD Code Alcohol use disorder Surgical History Surgery Date(Month/Year) Ovary removal 04/2012 Hospitalization History Reason Date(Month/Year) Slit wrist 05/2000 Slit wrist 12/2004 Slit wrist 04/2009
== END 2024-07-13 08:48 | disposition home or self-care (01) ==
PROVIDERS: PCP Family Medicine Adolescent Medicine; Visit Provider Surgery
DX: K44.9 Diaphragmatic hernia without obstruction or gangrene (principal); K21.9 Gastro-esophageal reflux disease without esophagitis
CPT/HCPCS: 74246

== ENCOUNTER 2024-08-30 11:26 | Outpatient (CLI) | payer OTHER, SELFPAY ==
--- NOTE | ~2024-08-30 | XR_ITS ---
EXAMINATION: XR chest 2V DATE: 08/30/2024 11:57 INDICATION: Diaphragmatic hernia without obstruction or gangrene TECHNIQUE: frontal view of the chest was obtained. COMPARISON: Chest radiograph and CT dated 05/19/2024 FINDINGS: No focal airspace opacities, pulmonary edema, pleural effusion or pneumothorax. The cardiomediastinal silhouette is normal. Small hiatal hernia. Post cystectomy clips in right upper quadrant. Mild thora cic spondylosis. IMPRESSION: 1. Small hiatal hernia. No acute cardiopulmonary disease. Reviewed, dictated and finalized at location A.
--- OUTSIDE RECORDS SUMMARY | 2024-08-30 11:32 | XMS_ITS | Patient Health Record ---
Author Organization [facility] Address [address] [place] [address] Care Team Providers Care 3D Artist Name Role Phone Salena Dorsey Primary Care Provider Allergies No Known Allergies Reason For Referral No Information Medications Medication SIG (Take, Route, Fr equency, Duration) Notes Start Date End Date Status Naltrexone HCl 50 MG TAKE 1 TABLET BY MO [facility] DAILY. START TAKING ONCE [...] Status W/U Status Risk Notes Problem Obesity (BMI 30-39.9) (E66.9) Active confirmed Plan Of Treatment No Information Insurance Providers Payer Name Payer Address Payer Phone Subscriber Number Group Number Insured Name Patient Relationship to Insured Coverage Start Date Coverage End Date [facility] [address] [address] [place] [address] [id number] Anastasiia Troncoso Self - patient is the insured 3 Medical (General) History Medical History History ICD Code Alcohol use disorder Surgical History Surgery Date(Month/Year) Ovary removal 04/2012 Hospitalization History Reason Date(Month/Year) Slit wrist 05/2000 Slit wrist 12/2004 Slit wrist 04/2009
--- OUTSIDE RECORDS SUMMARY | 2024-08-30 11:32 | XMS_ITS | Clinical Summary ---
Author Organization [facility] Address [facility] [place] [address] Care Team Providers Care Database Marketing Manager Name Role Phone Rosi Bolanos MD Primary Care Provider [phone] Social History Tobacco Use Types Packs/Day Years [...] Screening with HPV 02/27/1996 Mammogram Screening 2006 Pneumococcal Vaccine: 50+ Ye ars (1 of 1 - PCV) 02/27/2016 Zoster Vaccines (1 of 2) 02/27/2016 COVID-19 Vaccine ( - 2023-2 5 season) 2023 Meningococcal B Vaccine Aged Out No l onger eligible based on patient's age to complete this topic Meningococcal Vaccine Aged Out No oziel koki eligible based on patient's age to complete this topic RSV Immunizations Under 20 Months Aged Out No longer eligible based on patient's age to complete this topic Care Teams Database Marketing Manager Relationship Specialty Start Date End Date Rosi Bolanos MD [address] [place] [phone] PCP - General 06/11/10
--- NOTE | 2024-08-30 11:38 | ECG_ITS ---
Test Date: 2024-08-30 11:48:05 Measurements Intervals [place] Rate: 79 P: 27 UT: 144 QRS: 37 QRSD: 86 T: 50 QT: 387 QTc: 446 Interpretive Statements SINUS RHYTHM Compared to ECG 05/19/2024 09:21:04 Ectopic atrial rhythm no longer present Right-axis deviation no longer present Electronically Signed On 08-30-2024 14:11:40 CDT by Catarina Pugh
[2024-08-30 12:02] LABS: Basophils Absolute Auto 0.1 K/mm3 (0.0-0.1); Basophils Percent Auto 1.2 % (0.2-1.2); Eosinophils Absolute Auto 0.3 K/mm3 (0-0.3); Eosinophils Percent Auto 5.6 % (0-4.4); Hematocrit 37.7 % (37.0-47.0); Hemoglobin 11.7 g/dL (12.0-15.0); Immature Granulocyte Absolute 0.02 K/mm3 (0.00-0.031); Immature Granulocyte Percent A 0.4 % (0-0.5); Lymphocytes Absolute Auto 2.21 K/mm3 (0.9-3.2); Lymphocytes Percent Auto 45.7 % (18.3-44.2); Mean Corpuscular Hemoglobin 27.3 pg (26-34); Mean Corpuscular Volume 87.9 fl (80-100); Mean Platelet Volume 10.8 fl (7.4-10.4); Monocytes Absolute Auto 0.5 K/mm3 (0.1-0.6); Monocytes Percent Auto 9.3 % (2.6-8.5); Neutrophils Absolute Auto 1.8 K/mm3 (1.3-6.7); Neutrophils Percent Auto 37.8 % (45.5-73.1); Platelet Count Result 273 k/mm3 (150-375); Red Blood Count 4.29 M/mm3 (4.2-5.4); Red Cell Distribution Width 14.4 % (11.5-14.5); White Blood Count 4.8 K/mm3 (4.5-10.0)
[2024-08-30 12:21] LABS: INR 0.9; Prothrombin Time 12.5 Seconds (11.1-14.7)
[2024-08-30 12:22] LABS: Partial Thromboplastin Time 23.1 Seconds (22.3-36.8)
[2024-08-30 12:23] LABS: Anion Gap 10 mmol/L (4-12); Blood Urea Nitrogen 7 mg/dL (7-17); Calcium 9.4 mg/dL (8.4-10.2); Carbon Dioxide 27 mmol/L (22-30); Chloride 105 mmol/L (98-107); Estimated Glomerular Filt Rate > 60; Glucose 96 mg/dL (65-110); Potassium 4.5 mmol/L (3.4-5.0); Sodium 142 mmol/L (137-145)
== END 2024-08-30 11:27 | disposition home or self-care (01) ==
LOC: ANHSURGERY 11:30
PROVIDERS: Anesthesiology; PCP Family Medicine Adolescent Medicine; Visit Provider Surgery
DX: K44.9 Diaphragmatic hernia without obstruction or gangrene (principal); F10.10 Alcohol abuse, uncomplicated; Z86.19 Personal history of other infectious and parasitic diseases; R79.89 Other specified abnormal findings of blood chemistry; R74.8 Abnormal levels of other serum enzymes; Z01.818 Encounter for other preprocedural examination
CPT/HCPCS: 36415; 71046; 80048; 85025; 85610; 85730; 86850; 86900; 86901; 93005

== ENCOUNTER 2024-09-08 13:30 | Inpatient (IN) | payer OTHER, SELFPAY ==
--- NOTE | 2024-08-27 11:10 | PC.NURSE ---
Report to the Outpatient Waiting Room, entrance under the green pavilion located off [facility], at time __10:30am on date __09/07/24 . Planned Procedure Time: __12:30pm .? Time changes happen often and if your time is changed the preop area will call you the afternoon before. - You and your visitor will be asked to self-screen and do not enter if you have any COVID symptoms. Please call surgeon if you need to reschedule. - A mask is optional within the hospital at this time. Patients may have clear liquids (water, carbonated beverages, clear teas, apple juice) until 3 hours prior to surgery with a maximum of 20 ounces. - No food from midnight until time of surgery and no smoking, or chewing tobacco (or any form of nicotine). No chewing gum, candy or mints.(0930am) Take only the following medications with a SIP of water on the morning of surgery: ____Buproprion, Paroxetine, Vraylor, Naltrexone DO NOT STOP ANY OF YOUR OTHER PRESCRIPTION MEDICATIONS PRIOR TO SURGERY EXCEPT THE FOLLOWING Hold all vitamins and supplements for 3 days per anesthesiologist.Date to take last dose is 09/03/24 Medications to discontinue per physician None Date to take last dose None Please no make-up, nail sammarinese, hairspray, perfume, deodorant, or body powder the day of surgery.? No jewelry (including any body piercings) or valuables the day of surgery, leave them at home.? Please take a shower or bath the night before, or the morning of, surgery with an antibacterial soap.? Wear comfortable, loose fitting clothing- Bring overnight Bag to stay overnight. - Jewelry must be removed prior to entering the operating room.? Rings and piercings that are not removed may be cut off. - The hospital will not accept responsibility for valuables.? - Please leave all valuables, including medications, at home the day of surgery. If you are going home after surgery, a licensed driver examiner must drive you home.? - NO public transportation without another adult if you receive anesthesia. - We recommend that an adult stay with you for 24 hours following discharge. - We also recommend that you do not drive, make important decision, drink alcoholic beverages, or take any drugs that were not prescribed by your health care provider for at least 24 hours after your discharge time. Follow any additional instructions given to you from your surgeon. Telephone instructions given to __Patient and asked if any additional questions and then verbalized understanding. Patient advised to call surgeon office or pre surgery nurse liaison [phone] if any additional questions.
[2024-09-07] VITALS (14 sets, daily range): BP systolic 128–140; BP diastolic 70–95; PULSE 84–102; RESP 10–18; TEMP 36.2–36.7; O2SAT 92–97
--- OUTSIDE RECORDS SUMMARY | 2024-09-07 00:39 | XMS_ITS | Patient Health Record ---
Author Organization [facility] Address [address] [place] [address] Care Team Providers Care Car Barn Laborer Name Role Phone Salena Dorsey Primary Care Provider Allergies No Known Allergies Reason For Referral No Information Medications Medication SIG (Take, Route, Fr equency, Duration) Notes Start Date End Date Status Naltrexone HCl 50 MG TAKE 1 TABLET BY MO [facility] DAILY. START TAKING ONCE DAILY AT BEDTIME [...] Insured Coverage Start Date Coverage End Date [facility] [address] [address] [place] [address] [id number] Anastasiia Troncoso Self - patient is the insured 3 Medical (General) History Medical History History ICD Code Alcohol use disorder Surgical History Surgery Date(Month/Year) Ovary removal 04/2012 Hospitalization History Reason Date(Month/Year) Slit wrist 05/2000 Slit wrist 12/2004 Slit wrist 04/2009
--- OUTSIDE RECORDS SUMMARY | 2024-09-07 00:39 | XMS_ITS | Clinical Summary ---
Author Organization [facility] Address [facility] [place] [address] Care Team Providers Care Electrician Constructor Supervisor Name Role Phone Rosi Bolanos MD Primary Care Provider Social History Tobacco Use Types Packs/Day Years [...] age to complete this topic Care Teams Electrician Constructor Supervisor Relationship Specialty Start Date End Date Rosi Bolanos MD [address] [place] [phone] PCP - General 06/11/10
--- NOTE | 2024-09-07 08:52 | PM.IMHP ---
H&P: HPI History of Present Illness Date/Time: 09/07/24 08:52 Chief Complaint: Reflux, trouble swallowing Narrative: Patient is a 59-year-old woman who has had upper abdominal complaints for over a year. Her testing and symptoms seem to indicate she had chronic cholecystitis. She underwent laparoscopic cholecystectomy last November. She recovered uneventfully from this but then had more symptoms of chronic epigastric pain including dysphagia and heartburn. She takes 40 mg of omeprazole twice a day and still gets some heartburn symptoms. She had esophageal manometry as well as pH testing. Her esophageal motility was mildly decreased. Her pH testing showed pathologic reflux. After thorough discussion, she is taken to the operating room today for robotic laparoscopic hiatal hernia repair with partial fundoplication. She is a recovering alcoholic and has been abstinent from alcohol for approximately 65 days. Review of Systems Review of Systems: All systems reviewed & are unremarkable except as noted in HPI and below (HPI) PMFSH Past Medical History Medical History IBS (irritable bowel syndrome) Hypertension GERD (gastroesophageal reflux disease) Anemia Asthma Non-cardiac chest pain Anxiety Surgical History Surgical History History of laparoscopic cholecystectomy (11/2023) Hx of breast reduction, elective ~ 2003 History of rectal surgery prolapse repair History of oophorectomy Bilateral at age 39 Family History Family History Mother Family history of Alzheimer's disease Sibling Heart disease 2 brothers with CAD and quadruple bypasses in their 50s Other Hypertension Social History Social History Smoking packs per day: 0.3 Smoking cigarettes per day: 6.0 Years smoked: 20 Smoking pack-years: 6.00 Smoking status: Current every day smoker Tobacco type: cigarettes and e-cigarettes/vaping Smoking end date: 04/25/14 Additional smoking assessment comments: vaping 10 yrs presently Alcohol intake: former Alcohol use details: Sober for 49 days Substance use: current Substance use type: inhalants Other substance usage details: vaping Do You Feel Safe in your Home?: Yes Lack of Transportation: No Lack of Food: Sometimes True Current Housing: I Have Housing Concerned About Future Housing: No Difficulty Paying Gas/Electric Bills: No Difficulty Paying for Meds: No Currently Unemployed: No Education: Associate Degree Difficulty w/ Childcare or Family Care: No Living arrangements: with family Additional living arrangements comments: Gender identity (if verbalized by the patient): Female Sexual Orientation (if Verbalized by the Patient): Lesbian, Mondragon, or Homosexual Spiritual care concerns: No Agree to blood products: Yes Meds Home Medications and Allergies Home Medications ?Medication ?Instructions ?Recorded ?Confirmed ?Type bupropion HCl 100 mg tablet 100 mg PO BID 08/03/21 09/07/24 History paroxetine HCl 20 mg tablet 20 mg PO BID #180 tabs 04/06/23 09/07/24 Rx magnesium 500 mg tablet 500 mg PO .PM 09/22/23 09/07/24 History melatonin 1.5 mg tablet 3 mg PO HS 09/22/23 09/07/24 History valacyclovir 1 gram tablet 2,000 mg PO Q12H PRN BREAKOUT ON 12/07/23 08/27/24 History NOSE cariprazine 1.5 mg capsule 1.5 mg PO BID 01/31/24 09/07/24 History (Vraylar) omeprazole 40 mg capsule,delayed See Rx Instructions .Route 03/20/24 09/07/24 Rx release .COMPLEX #180 caps temazepam 15 mg capsule 15 mg PO QHS PRN sleep #30 caps 05/09/24 08/27/24 Rx albuterol sulfate 90 mcg/actuation 2 inh inhalation Q4H PRN shortness 05/30/24 08/27/24 Rx aerosol inhaler of breath or wheezing #8.5 grams naltrexone 50 mg tablet 50 mg PO BID #60 tabs 05/30/24 09/07/24 Rx linaclotide 290 mcg capsule 290 mcg Capsule#6 Samples 06/26/24 09/07/24 Sample (Linzess) lorazepam 0.5 mg tablet 1 mg PO DAILY PRN anxiety 08/27/24 08/27/24 History Allergies Allergy/AdvReac Type Severity Reaction Status Date / Time No Known Allergies Allergy Mild Verified 09/07/24 07:38 Vital Signs Vital Signs - 24 hr 09/07/24 07:30 Temperature 36.3 C L Pulse Rate 88 Respiratory Rate 18 Blood Pressure 138/75 Pulse Oximetry 97 Oxygen Delivery Room Air Exam Const: General: comfortable, no acute distress, alert and awake HENMT: Head: normocephalic and atraumatic Mouth: Yes Normal oral and palatal mucosa present Eyes: Conjunctivae: conjunctivae normal Pupils: Equal, round and reactive pupils present EOM: EOMs intact bilaterally Neck: Neck: normal visual inspection, no lymphadenopathy and nontender Resp: Effort & Inspection: normal respiratory effort Auscultation: clear to auscultation bilaterally Cardio: Rate: regular rate Rhythm: regular rhythm Heart sounds: no gallops, no murmurs and no rubs GI: Inspection: non-distended and scar ( lap michel trocar scars) GI Palp: Yes Soft to palpation, No Tenderness to palpation present (GI), No Hepatomegaly present and No Splenomegaly present Skin: Lesions: no lesions Rashes: no rashes Neuro: General: no focal motor deficits and CN's II-XI intact bilaterally Cranial nerves: Yes Equal, round and reactive pupils present, Yes Bilaterally intact EOM present, Yes facial symmetry and Yes Midline tongue present Speech: normal speech Motor exam (neuro): 5/5 motor strength present throughout and Motor abnormalities not present Extrem: General: no clubbing, cyanosis or edema and edema Psych: Affect: normal affect Thought process: Normal thought process present Insight: Good insight present (Psych) Assessment and Plan Assessment and plan (1) Hiatal hernia: Code(s): K44.9 - Diaphragmatic hernia without obstruction or gangrene Status: Chronic Assessment and Plan: Plan to proceed with robotic laparoscopic cholecystectomy with partial fundoplication. Procedure, risks, benefits, alternatives have been discussed. The usual length of the surgery and length of time in the hospital has been discussed. Length of recovery and postoperative dysphagia has been discussed. All questions were answered. Patient understands and wishes to go ahead. (2) GERD (gastroesophageal reflux disease): Qualifiers: Esophagitis presence: without esophagitis Qualified Code(s): K21.9 - Gastro-esophageal reflux disease without esophagitis Code(s): K21.9 - Gastro-esophageal reflux disease without esophagitis Status: Chronic (3) Slow transit constipation: Code(s): K59.01 - Slow transit constipation Status: Chronic (4) Alcohol use disorder in remission: Code(s): F10.91 - Alcohol use, unspecified, in remission Status: Chronic (5) Bipolar disorder: Qualifiers: Active/Remission status: remission status unspecified Qualified Code(s): F31.9 - Bipolar disorder, unspecified Code(s): F31.9 - Bipolar disorder, unspecified Status: Chronic
--- NOTE | 2024-09-07 08:59 | WPDHPUPDATE1 ---
History and Physical Update Update Date/Time: 09/07/24 08:59 History and Physical has been reviewed, including an updated exam of the patient. There are NO changes in the patient's condition. Risks, benefits, and alternatives have been discussed and questions answered. Patient agrees to proceed with procedure.
--- NOTE | 2024-09-07 09:06 | P.PNAN_ITS ---
Anes - Initial Pre Proc Eval Procedure: Operation Date: 09/07/24 09:30 Proposed Procedures p Robotic Repair Hiatal Hernia with Partial Fundoplication - Keyur Belle MD Date/Time: 09/07/24 09:06 Surgeon: Keyur Belle MD Pre Op Diagnosis: Hiatal Hernia Patient Data Age: 59 Gender: F Height: Weight: 66.6 kg Last Vital Signs Temp 36.3 C L 09/07/24 07:30 Pulse 88 09/07/24 07:30 Resp 18 09/07/24 07:30 BP 138/75 09/07/24 07:30 Pulse Ox 97 09/07/24 07:30 O2 Del Method Room Air 09/07/24 07:30 Allergies Allergy/AdvReac Type Severity Reaction Status Date / Time No Known Allergies Allergy Mild Verified 09/07/24 07:38 Home Medications ?Medication ?Instructions ?Recorded ?Confirmed ?Type bupropion HCl 100 mg tablet 100 mg PO BID 08/03/21 09/07/24 History paroxetine HCl 20 mg tablet 20 mg PO BID #180 tabs 04/06/23 09/07/24 Rx magnesium 500 mg tablet 500 mg PO .PM 09/22/23 09/07/24 History melatonin 1.5 mg tablet 3 mg PO HS 09/22/23 09/07/24 History valacyclovir 1 gram tablet 2,000 mg PO Q12H PRN BREAKOUT ON 12/07/23 08/27/24 History NOSE cariprazine 1.5 mg capsule 1.5 mg PO BID 01/31/24 09/07/24 History (Vraylar) omeprazole 40 mg capsule,delayed See Rx Instructions .Route 03/20/24 09/07/24 Rx release .COMPLEX #180 caps temazepam 15 mg capsule 15 mg PO QHS PRN sleep #30 caps 05/09/24 08/27/24 Rx albuterol sulfate 90 mcg/actuation 2 inh inhalation Q4H PRN shortness 05/30/24 08/27/24 Rx aerosol inhaler of breath or wheezing #8.5 grams naltrexone 50 mg tablet 50 mg PO BID #60 tabs 05/30/24 09/07/24 Rx linaclotide 290 mcg capsule 290 mcg Capsule#6 Samples 06/26/24 09/07/24 Sample (Linzess) lorazepam 0.5 mg tablet 1 mg PO DAILY PRN anxiety 08/27/24 08/27/24 History Patient hx anesthesia problems: none Family hx anesthesia problems: none Results Review: All pre-operative results and documents have been reviewed as part of the pre- operative evaluation. [facility] Past Medical History Medical History IBS (irritable bowel syndrome) Hypertension GERD (gastroesophageal reflux disease) Anemia Asthma Non-cardiac chest pain Anxiety Surgical History Surgical History History of laparoscopic cholecystectomy (11/2023) Hx of breast reduction, elective ~ 2003 History of rectal surgery prolapse repair History of oophorectomy Bilateral at age 39 Family History Family History Mother Family history of Alzheimer's disease Sibling Heart disease 2 brothers with CAD and quadruple bypasses in their 50s Other Hypertension Social History Social History Smoking packs per day: 0.3 Smoking cigarettes per day: 6.0 Years smoked: 20 Smoking pack-years: 6.00 Smoking status: Current every day smoker Tobacco type: cigarettes and e-cigarettes/vaping Smoking end date: 04/25/14 Additional smoking assessment comments: vaping 10 yrs presently Alcohol intake: former Alcohol use details: Sober for 49 days Substance use: current Substance use type: inhalants Other substance usage details: vaping Do You Feel Safe in your Home?: Yes Lack of Transportation: No Lack of Food: Sometimes True Current Housing: I Have Housing Concerned About Future Housing: No Difficulty Paying Gas/Electric Bills: No Difficulty Paying for Meds: No Currently Unemployed: No Education: Associate Degree Difficulty w/ Childcare or Family Care: No Living arrangements: with family Additional living arrangements comments: Gender identity (if verbalized by the patient): Female Sexual Orientation (if Verbalized by the Patient): Lesbian, Mondragon, or Homosexual Spiritual care concerns: No Agree to blood products: Yes Anes - Eval Final PreProcedure Day of Procedure 09/07/24 09:06 Patient weight: obese Heart: regular rate and rhythm Lungs: decreased breath sounds Airway: Mallampati scale class II Neurological: alert and oriented Last oral intake: >/= 8 hours ASA classification: III Emergent: no Anesthetic plan: proceed Anesthesia type and monitoring: general ETT and standard monitoring Results Review: All pre-operative results and documents have been reviewed as part of the pre- operative evaluation. Informed Consent: The patient's anesthetic plan and its attendant risks and benefits were discussed with the patient/family/POA. Questions were solicited and answers provided to the satisfaction of the patient/family/POA.
[2024-09-07] MEDS: ceFAZolin 2 GM/D5W 50 ML 2 GM/50 ML BAG IVPB (09:55)
[2024-09-07] MEDS: BUPIVACAINE/EPINEPHRINE 0.5% 50 ML VIAL 30 ML INFILTRATE (11:24)
[2024-09-07] MEDS: LACTATED RINGERS 1,000 ML 30 ML IV CONT ×3 (13:54)
[2024-09-07] MEDS: fentaNYL CITRATE INJ (*CRX) 100 MCG/2 ML VIAL 25 MCG IV PUSH (14:01)
--- NOTE | 2024-09-07 14:33 | P.OP_ITS ---
Procedure Note - Detailed Date of Procedure 09/07/24 Pre-op Diagnosis Hiatal Hernia, GERD Post-op Diagnosis Same Procedure Performed Robotic laparoscopic repair hiatal hernia with partial fundoplication and fundopexy Surgeon Keyur Belle MD Networker Leslie RODRIGEZA, Mike Byers INTELLIGENCE CONSULTANT Anesthesia General and Local Indications Patient has a moderate to large hiatal hernia with dysphagia, regurgitation, heartburn despite twice a day proton pump inhibitors. She had an upper GI that showed spontaneous reflux. She had esophageal manometry that showed adequate motility for fundoplication. Patient also had pH testing which showed pathologic reflux. Findings Large hiatal hernia, fatty enlarged liver Description of Procedure Patient was taken to the operating room and induced into general anesthesia. The abdomen was prepped and draped. Trocars were placed starting with a left subcostal 5 mm applied Medical optical port. We gained intraperitoneal location with this and insufflated. Three robotic ports were then placed under direct visualization as well as one 10/11 port. The applied Medical port was then exchanged for an 8 mm robotic trocar. Patient was placed in 30 degree reverse Trendelenburg. The robot was brought into the field and the camera was docked and targeted. Instruments were placed in the other robotic arms and they were positioned appropriately. The shore retracting grasper was then used to elevate the lateral segment of the left lobe of the liver. The left lobe of the liver was quite enlarged and had fatty change. It was difficult to position the short retracting grasper so that the lower aspect of the lateral segment would not droop into the visual field. The stomach appeared to be half way into the mediastinum. We started by using the tissue sealer and taking down the hepatic gastric ligament to expose the right toby. I then grasped the apex of the hiatal hernia and opened into the hernia sac and mediastinum. We dissected eloise und the hernia sac in the area older tissue. After generalized dissection was carried out near the apex of hiatal hernia, our dissection turned to taking down the attachments of the sac to the left toby. Once this was accomplished, I started taking down the hernia sac attachments to the right toby. About half way down the right toby, visualization became difficult. We elevated the greater curvature of the stomach and exposed the greater omentum junction with the greater curvature. Dissection was carried into the lesser sac. We continued marching up the greater curvature using the tissue sealer and exposure by the editorial assistant port and the cautery a. Eventually we reached the cardia the stomach and the left toby. The hernia sac was divided from the left toby all the way down to its junction with the right toby. From here I was able to place traction on the hernia sac and dissect on the patient's left and posterior to mobilize the sac and the stomach. We went back to the right side of the esophagus and ends similar fashion used most likely blunt dissection but some tissue sealer. This had the effect of reducing the stomach into the abdomen and reducing the entire hernia sac into the abdomen. I then it excised the left side of the hernia sac and the fat pad at the cardia of the stomach. This tissue was discarded. Traction was then placed on the stomach and we proceeded with dissection to the anterior mediastinum. This was done with blunt sharp dissection with the tissue sealer. I tried to position the short retracting grasper so that it could assist in exposing the anterior mediastinum. Unfortunately my attempts to move this were unsuccessful as the liver continued to fall forward at the anterior aspect and obscure my view. Also unfortunately, during my attempts to position this, the friable liver suffered an injury that resulted in oozing of blood. Pressure was held and then the short grasping retractor was again used to simply retract the lateral segment left lobe of the liver. Oozing of blood from the liver did obscure the field and we had to use suction repeatedly as this continued to ooze off and on during the surgery. Using the editorial assistant port and the instruments on the robot I did proceed with a high dissection of the esophagus circumferentially. We had probably 5 cm of intra-abdominal esophagus under no tension after the mediastinal dissection. I then used 0 Ethibond [id number] sutures and closed the hiatus with 2 different suture. The 1st editorial assistant passed a grasper under the esophagus and the fundus was then passed under the esophagus to start the fundoplication. The fundus was positioned appropriately on the patient's right side of the esophagus. I then used 0 Ethibond suture and sutured the fundus to the stomach esophagus and the hiatus with 3 different sutures. This was a partial fundoplication. On the patient's left side of the esophagus, similarly, 3 0 Ethibond sutures were placed to suture the stomach to the hiatus and to the esophagus. On each side only 2 of the 3 sutures included the esophagus. The last 2 only included hiatus and fundus. All looked good. There was no evidence of bleeding. I removed the short grasping retractor from the undersurface of the liver. The previous injury had stopped bleeding completely. The instruments were then removed as was the camera. The robot was undocked. We evacuated CO2 and then removed the trocars. Skin wounds were closed with subcuticular 4-0 Monocryl skin suture. The wounds were dressed with Exofin surgical adhesive. Patient was awakened and taken to recovery in good condition. Sponge and needle counts were correct x2. Estimated Blood Loss -100 Drains No Packing No Pathology None sent Complications None Condition Stable Disposition PACU [facility] Billing Surgery - Charge Forward: Surgery Billing (Robotic laparoscopic repair hiatal hernia with fundoplasty and fundopexy)
[2024-09-07] MEDS: MORPHINE SULFATE (*CRX) 4 MG/ML INJ IV PUSH ×2 (15:16→19:58)
[2024-09-07] MEDS: LACTATED RINGERS 1,000 ML 100 ML IV CONT (15:16)
[2024-09-07] MEDS: PARoxetine 20 MG TABLET PO (16:38)
[2024-09-07] MEDS: buPROPion HCL 100 MG TABLET PO (16:38)
[2024-09-07] MEDS: MAGNESIUM OXIDE 400 MG TABLET PO (16:50)
[2024-09-07] MEDS: oxyCODONE HCL (*CRX) 5 MG TAB IR PO ×2 (17:38→22:08)
[2024-09-07] MEDS: SENNA/DOCUSATE SODIUM TABLET 2 TAB PO (22:09)
[2024-09-07] MEDS: MELATONIN 3 MG TABLET PO (22:10)
[2024-09-08] VITALS (10 sets, daily range): BP systolic 132–166; BP diastolic 65–85; PULSE 97–108; RESP 16–20; TEMP 36.4–38; O2SAT 90–94
--- NOTE | ~2024-09-08 | XR_ITS ---
EXAMINATION: XR chest 2V DATE: 09/08/2024 09:41 INDICATION: Chest pain TECHNIQUE: PA and lateral views of the chest were obtained. COMPARISON: 09/09/2024 FINDINGS: Mild elevation the left hemidiaphragm. Opacities at the bilateral lower lungs which could represent a telectasis or pneumonia possibly with associated small bilateral pleural effusions. No pneumothorax. Cardiac silhouette is obscured. Cholecystectomy clips in right upper quadrant. IMPRESSION: 1. Opacities at the bilateral lower lung zones consistent with atelectasis and/or pneumonia possibly with associated small pleural effusions. Reviewed, dictated and finalized at location A. IMPRESSION: 1. Opacities at the bilateral lower lung zones consistent with atelectasis and/ or pneumonia possibly with associated small pleural effusions.
[2024-09-08] MEDS: MORPHINE SULFATE (*CRX) 2 MG/ML INJ IV PUSH (00:48)
[2024-09-08] MEDS: PROCHLORPERAZINE EDISYLATE 10 MG/2 ML VIAL IV PUSH (05:11)
[2024-09-08] MEDS: oxyCODONE HCL (*CRX) 5 MG TAB IR PO (05:11)
[2024-09-08 05:32] LABS: Hematocrit 31.5 % (37.0-47.0); Hemoglobin 9.9 g/dL (12.0-15.0); Mean Corpuscular HGB Conc 31.4 g/dl (32-36); Mean Corpuscular Hemoglobin 27.5 pg (26-34); Mean Corpuscular Volume 87.5 fl (80-100); Mean Platelet Volume 11.1 fl (7.4-10.4); Platelet Count Result 213 k/mm3 (150-375); Red Cell Distribution Width 14.6 % (11.5-14.5); White Blood Count 7.2 K/mm3 (4.5-10.0)
[2024-09-08 05:45] LABS: Anion Gap 4 mmol/L (4-12); Blood Urea Nitrogen 8 mg/dL (7-17); Calcium 8.4 mg/dL (8.4-10.2); Carbon Dioxide 29 mmol/L (22-30); Chloride 103 mmol/L (98-107); Estimated Glomerular Filt Rate > 60; Glucose 108 mg/dL (65-110); Potassium 3.5 mmol/L (3.4-5.0); Sodium 136 mmol/L (137-145)
[2024-09-08] MEDS: MORPHINE SULFATE (*CRX) 4 MG/ML INJ IV PUSH (08:21)
[2024-09-08] MEDS: buPROPion HCL 100 MG TABLET PO ×2 (08:27→16:55)
[2024-09-08] MEDS: polyethylene glycoL 3350 17 GM POWD.PACK PO (08:28)
[2024-09-08] MEDS: ENOXAPARIN 40 MG/0.4 ML SYRINGE SUB-Q (08:28)
[2024-09-08] MEDS: PARoxetine 20 MG TABLET PO ×2 (08:28→16:55)
--- NOTE | 2024-09-08 09:01 | ECG_ITS ---
Test Date: 2024-09-08 09:53:25 Measurements Intervals Ward Rate: 106 P: 9 AK: 148 QRS: 19 QRSD: 90 T: 31 QT: 342 QTc: 456 Interpretive Statements SINUS TACHYCARDIA POSSIBLE RIGHT VENTRICULAR CONDUCTION DELAY [RSR (QR) IN V1/V2] MINIMAL ST DEPRESSION [0.025+ mV ST DEPRESSION] ABNORMAL ECG Compared to ECG 08/30/2024 11:48:05 ST (T wave) deviation now present Sinus rhythm no longer present Electronically Signed On 09-08-2024 13:01:48 CDT by Cale Jain M.D.
[2024-09-08 09:39] LABS: Alveolar/Arterial O2 Gradient 94.8 mmHg; Base Excess ABG 0.4 mEq/l (+/-2.0); Fractional Inspired Oxygen 28 %; HCO3 ABG 23.8 mEq/l (22.0-26.0); Oxygen Content ABG 14.4 %vol (16.0-22.0); Oxygen Saturation ABG 93.8 % (95.0-100.0); Oxyhemoglobin 92.7 % THb (90.0-100.0); PCO2 ABG 34.3 mmHg (35.0-45.0); PO2 ABG 64.4 mmHg (80.0-100.0)
[2024-09-08 09:40] LABS: Device NASAL CANNULA; Modified Allen's Test Pass; Site Drawn RIGHT RADIAL
[2024-09-08 10:05] LABS: Creatine Kinase 437 U/L (30-135); Troponin I < 0.012 ng/mL (0.000-0.034)
[2024-09-08] MEDS: oxyCODONE HCL (*CRX) 5 MG TAB IR 10 MG PO ×2 (11:08→16:54)
--- NOTE | 2024-09-08 12:41 | P.PNGS_ITS ---
Progress Note: A&P Assessment and Plan (1) Chest pain: Qualifiers: Chest pain type: other chest pain Qualified Code(s): R07.89 - Other chest pain Code(s): R07.9 - Chest pain, unspecified Status: Acute Assessment and Plan: No evidence of acute coronary syndrome, pneumothorax, rib fracture, intra t horacic bleeding. Chest pain consistent with recent surgery yesterday. (2) Hypoxemia requiring supplemental oxygen: Code(s): R09.02 - Hypoxemia; Z99.81 - Dependence on supplemental oxygen Status: Acute Assessment and Plan: Likely due to chest pain above an limited activity with decreased breath excursions. No suggestion of postop pneumonia despite chest x-ray reading. Increase ambulation and use of spirometer. (3) History of repair of hiatal hernia: Code(s): Z98.890 - Other specified postprocedural states; Z87.19 - Personal history of other diseases of the digestive system Status: Acute Assessment and Plan: Patient has history of alcoholism and polysubstance abuse although she is been abstinent for over 2 months of alcohol and off illicit substances for a longer period of time. Likely to require higher doses of narcotics than usual. I discussed this with her and have increased the dose on her Percocet and her morphine sulfate. No complaints of dysphagia or heartburn. Only taking clears right now. (4) Alcohol use disorder in remission: Code(s): F10.91 - Alcohol use, unspecified, in remission Status: Chronic Assessment and Plan: Over 2 months of abstinence. Takes naltrexone (5) Bipolar disorder: Qualifiers: Active/Remission status: remission status unspecified Qualified Code(s): F31.9 - Bipolar disorder, unspecified Code(s): F31.9 - Bipolar disorder, unspecified Status: Chronic Assessment and Plan: Continue home medications. Subjective Subjective Date/Time Seen: 09/08/24 12:41 Post Op day: 1 Patient reports: still having pain (Pain bilaterally upper chest, pain with deep breath), tolerating liquids well, no bowel movement and afebrile Interval history: Pain meds are not controlling her pain very well. Exam Const: General: cooperative, comfortable, awake and tired appearing Orientation/consciousness: patient oriented x3 and No confusion Resp: Effort & Inspection: normal respiratory effort, no audible wheezes, not labored and not tachypneic Auscultation: clear to auscultation bilaterally, no rales and diminished lung sounds bilateral in the lower lung canela Cardio: Jugular venous distension: no JVD Rate: tachycardic Rhythm: regular rhythm GI: Inspection: incision (Healing) GI Palp: Yes Soft to palpation and Yes Tenderness to palpation present (GI) Objective Data Vital Signs Vital Signs: Vital Signs - 24 hr 09/07/24 13:54 09/07/24 14:00 09/07/24 14:12 Temperature 36.7 C Pulse Rate 102 H 96 Respiratory Rate 18 10 L Blood Pressure 138/70 138/95 H Pulse Oximetry 95 94 92 Oxygen Delivery Simple Face Mask Simple Face Mask Nasal Cannula Oxygen Flow Rate 8 8 4 09/07/24 14:15 09/07/24 14:30 09/07/24 15:00 Temperature 36.5 C Pulse Rate 98 102 H 101 H Respiratory Rate 18 18 18 Blood Pressure 133/75 139/86 135/83 Pulse Oximetry 93 92 92 Oxygen Delivery Nasal Cannula Nasal Cannula Oxygen Flow Rate 4 4 09/07/24 15:15 09/07/24 15:30 09/07/24 15:35 Temperature 36.6 C Pulse Rate 92 88 Respiratory Rate 18 16 Blood Pressure 140/90 128/75 Pulse Oximetry 92 94 92 Oxygen Delivery Nasal Cannula Oxygen Flow Rate 4 09/07/24 16:51 09/07/24 17:12 09/07/24 20:04 Temperature 36.2 C L 36.2 C L Pulse Rate 84 86 Respiratory Rate 18 18 Blood Pressure 131/76 138/84 Pulse Oximetry 92 92 92 Oxygen Delivery Room Air Oxygen Flow Rate 09/07/24 20:45 09/08/24 00:24 09/08/24 04:24 Temperature 37.2 C 36.4 C Pulse Rate 100 97 Respiratory Rate 18 16 Blood Pressure 143/80 H 148/65 H Pulse Oximetry 92 92 92 Oxygen Delivery Room Air Oxygen Flow Rate 09/08/24 08:52 Temperature 36.6 C Pulse Rate 102 H Respiratory Rate Blood Pressure 155/72 H Pulse Oximetry 91 Oxygen Delivery Oxygen Flow Rate Intake/Output Intake/Output: Intake & Output 09/05/24 09/06/24 09/07/24 09/08/24 23:59 23:59 23:59 23:59 Intake Total 690 120 Balance 690 120 Meds/Results Medications: Active Medications Generic Name Dose Route Start Last Admin Trade Name Freq PRN Reason Stop Dose Admin Acetaminophen 650 mg 09/07/24 17:17 Acetaminophen 325 Mg Tablet BY MOUTH Q6H PRN Mild Pain (1-3) or Fever Albuterol 2 puff 09/07/24 14:39 Albuterol Sulfate (*Sp) Aerosol 1 Puff INHALATION Q4H PRN shortness of breath or wheezing Bupropion HCl 100 mg 09/07/24 17:00 09/08/24 08:27 Bupropion Hcl 100 Mg Tablet PO 100 mg BID AILYN Administration Enoxaparin Sodium 40 mg 09/08/24 09:00 09/08/24 08:28 Enoxaparin 40 Mg/0.4 Ml Syringe SUB-Q 40 mg DAILY AILYN Administration Ibuprofen 800 mg in 200 mls @ 400 mls/hr 09/07/24 14:39 Caldolor 800 Mg/200 Ml IVPB Q6H PRN Breakthrough Pain Rated 1-3 or NPO Linaclotide 290 mcg 09/08/24 06:30 09/08/24 05:15 Linaclotide 145 Mcg Capsule PO Not Given DAILY@0630 AILYN Lorazepam 1 mg 09/07/24 14:39 Lorazepam (*Crx) 1 Mg Tablet PO DAILY PRN anxiety Magnesium Oxide 400 mg 09/07/24 18:00 09/07/24 16:50 Magnesium Oxide 400 Mg Tablet PO 400 mg EVENING AILYN Administration Melatonin 3 mg 09/07/24 21:00 09/07/24 22:10 Melatonin 3 Mg Tablet PO 3 mg HS AILYN Administration Morphine Sulfate 2 mg 09/07/24 14:39 09/08/24 00:48 Morphine Sulfate (*Crx) 2 Mg/Ml Inj IV PUSH 2 mg Q2H PRN Administration Breakthrough Pain Rated 4-6 or NPO Morphine Sulfate 6 mg 09/08/24 09:10 Morphine Sulfate (*Crx) 4 Mg/Ml Inj IV PUSH Q2H PRN Breakthrough Pain Rated 7-10 or NPO Naloxone HCl 0.1 mg 09/07/24 14:39 Naloxone Hcl 0.4 Mg/Ml Vial IV PUSH Q2M PRN Opiate Reversal Oxycodone HCl 10 mg 09/08/24 09:10 09/08/24 11:08 Oxycodone Hcl (*Crx) 5 Mg Tab Ir PO 10 mg Q4H PRN Administration Pain Rated 7-10 Paroxetine HCl 20 mg 09/07/24 17:00 09/08/24 08:28 Paroxetine 20 Mg Tablet PO 20 mg BID AILYN Administration Polyethylene Glycol 17 gm 09/08/24 09:00 09/08/24 08:28 Polyethylene Glycol 3350 17 Gm Powd.Pack PO 17 gm QAM AILYN Administration Prochlorperazine Edisylate 10 mg 09/07/24 22:40 09/08/24 05:11 Prochlorperazine Edisylate 10 Mg/2 Ml Vial IV PUSH 10 mg Q6H PRN Administration Nausea And Vomiting Senna/Docusate Sodium 2 tab 09/07/24 21:00 09/07/24 22:09 Senna/Docusate Sodium Tablet PO 2 tab HS AILYN Administration Temazepam 15 mg 09/07/24 14:39 Temazepam (*Crx) 15 Mg Capsule PO QHS PRN sleep Valacyclovir HCl 2,000 mg 09/07/24 14:39 Valacyclovir Hcl 500 Mg Tablet PO Q12H PRN BREAKOUT ON NOSE Radiology Results: ITS Impressions Chest X-Ray 09/08/24 10:09 IMPRESSION: 1. Opacities at the bilateral lower lung zones consistent with atelectasis and/or pneumonia possibly with associated small pleural effusions. Labs Labs: Laboratory Results - last 24 hr 09/08/24 09/08/24 09/08/24 05:08 09:28 09:33 WBC 7.2 RBC 3.60 L Hgb 9.9 L Hct 31.5 L MCV 87.5 MCH 27.5 MCHC 31.4 L RDW 14.6 H Plt Count 213 MPV 11.1 H Puncture Site Right radial ABG pH 7.460 H ABG pCO2 34.3 L ABG pO2 64.4 L ABG PO2/FiO2 Ratio 2.30 ABG HCO3 23.8 ABG O2 Saturation 93.8 L ABG O2 Content 14.4 L ABG Base Excess 0.4 A-a Gradient 94.8 Oxyhemoglobin 92.7 Total Hemoglobin 11.0 L O2 Delivery Device Nasal cannula O2 Liters/Min 2.0 FiO2 28 Sodium 136 L Potassium 3.5 Chloride 103 Carbon Dioxide 29 Anion Gap 4 BUN 8 Creatinine 0.68 L Estim Creat Clear Calc Not Reportable Estimated GFR > 60 Glucose 108 Calcium 8.4 Total Creatine Kinase 437 H CK-MB (CK-2) Not Reportable Troponin I < 0.012 EKG shows no acute ischemic changes, tachycardia with sinus tach Troponin 1 is less than 0.012 Imaging Attestation: I personally reviewed and interpreted this imaging study as follows: (Chest x-ray) My impression: Bilateral atelectasis Radiologist's impression: IMPRESSION: 1. Opacities at the bilateral lower lung zones consistent with atelectasis and/or pneumonia possibly with associated small pleural effusions. ABG Attestation: I personally reviewed and interpreted this ABG as follows: (Oxygen saturation 94% on 2 L, PO2 is low at 64.4)
[2024-09-08] MEDS: MORPHINE SULFATE (*CRX) 4 MG/ML INJ 6 MG IV PUSH (13:15)
[2024-09-08] MEDS: MAGNESIUM OXIDE 400 MG TABLET PO (16:57)
[2024-09-08] MEDS: MELATONIN 3 MG TABLET PO (21:22)
[2024-09-08] MEDS: SENNA/DOCUSATE SODIUM TABLET 2 TAB PO (21:22)
[2024-09-08] MEDS: IBUPROFEN IV 800 MG/200 ML 800 MG/200 ML BAG 400 MG IVPB (21:22)
[2024-09-09 05:24] VITALS: BP 146/75; PULSE 78; RESP 16; TEMP 36.6; O2SAT 98
[2024-09-09] MEDS: oxyCODONE HCL (*CRX) 5 MG TAB IR 10 MG PO ×5 (05:31→22:06)
[2024-09-09] MEDS: LINACLOTIDE 145 MCG CAPSULE 290 MCG PO (05:31)
[2024-09-09 05:33] LABS: Anion Gap 4 mmol/L (4-12); Blood Urea Nitrogen 6 mg/dL (7-17); Calcium 8.7 mg/dL (8.4-10.2); Carbon Dioxide 31 mmol/L (22-30); Chloride 105 mmol/L (98-107); Estimated Glomerular Filt Rate > 60; Glucose 102 mg/dL (65-110); Potassium 3.9 mmol/L (3.4-5.0); Sodium 140 mmol/L (137-145)
[2024-09-09 06:21] LABS: Hematocrit 35.8 % (37.0-47.0); Hemoglobin 10.3 g/dL (12.0-15.0); Mean Corpuscular HGB Conc 28.8 g/dl (32-36); Mean Corpuscular Hemoglobin 27.8 pg (26-34); Mean Corpuscular Volume 96.8 fl (80-100); Mean Platelet Volume 10.7 fl (7.4-10.4); Platelet Count Result 193 k/mm3 (150-375); Red Cell Distribution Width 14.9 % (11.5-14.5); White Blood Count 5.2 K/mm3 (4.5-10.0)
[2024-09-09 09:35] VITALS: O2SAT 98
[2024-09-09] MEDS: PARoxetine 20 MG TABLET PO ×2 (09:39→18:06)
[2024-09-09] MEDS: buPROPion HCL 100 MG TABLET PO ×2 (09:39→18:06)
--- NOTE | 2024-09-09 13:17 | P.PNGS_ITS ---
Progress Note: A&P Assessment and Plan (1) Chest pain: Qualifiers: Chest pain type: other chest pain Qualified Code(s): R07.89 - Other chest pain Code(s): R07.9 - Chest pain, unspecified Status: Acute Assessment and Plan: Much better today. Workup yesterday was negative suggesting this is postop erative pain. Increasing her doses of narcotics helped and she is much more comfortable. (2) Hypoxemia requiring supplemental oxygen: Code(s): R09.02 - Hypoxemia; Z99.81 - Dependence on supplemental oxygen Status: Acute Assessment and Plan: Still on 1 L O2 nasal cannula. I will give her a dose of Bumex today. (3) History of repair of hiatal hernia: Onset Date: 08/2024 Code(s): Z98.890 - Other specified postprocedural states; Z87.19 - Personal history of other diseases of the digestive system Status: Acute Assessment and Plan: Tolerating full liquids with no symptoms of dysphagia or reflux. Postoperative pain is improving. Possibly home tomorrow if no longer needing oxygen. (4) Alcohol use disorder in remission: Code(s): F10.91 - Alcohol use, unspecified, in remission Status: Chronic Assessment and Plan: Over 2 months of abstinence. Takes naltrexone (5) Bipolar disorder: Qualifiers: Active/Remission status: remission status unspecified Qualified Code(s): F31.9 - Bipolar disorder, unspecified Code(s): F31.9 - Bipolar disorder, unspecified Status: Chronic Assessment and Plan: Continue home medications. Subjective Subjective Date/Time Seen: 09/09/24 13:17 Post Op day: 3 Patient reports: no new complaints, feels better, tolerating liquids well, voiding w/o difficulty, flatus, no bowel movement and afebrile Exam Const: General: cooperative, comfortable and awake GI: Inspection: non-distended and incision (Some ecchymosis but all are healing well) GI Palp: Yes Soft to palpation and Yes Tenderness to palpation present (GI) Objective Data Vital Signs Vital Signs: Vital Signs - 24 hr 09/08/24 14:07 09/08/24 18:54 09/08/24 21:00 Temperature 36.8 C 36.5 C 38.0 C H Pulse Rate 107 H 108 H 102 H Respiratory Rate 16 20 18 Blood Pressure 132/74 166/85 H 139/73 Pulse Oximetry 90 94 92 Oxygen Delivery Oxygen Flow Rate 09/08/24 21:22 09/08/24 22:20 09/08/24 23:58 Temperature 38.0 C H 36.7 C 36.7 C Pulse Rate Respiratory Rate Blood Pressure Pulse Oximetry Oxygen Delivery Oxygen Flow Rate 09/09/24 05:24 09/09/24 09:35 Temperature 36.6 C Pulse Rate 78 Respiratory Rate 16 Blood Pressure 146/75 H Pulse Oximetry 98 98 Oxygen Delivery Nasal Cannula Oxygen Flow Rate 2 Intake/Output Intake/Output: Intake & Output 09/06/24 09/07/24 09/08/24 09/09/24 23:59 23:59 23:59 23:59 Intake Total 690 1160 550 Balance 690 1160 550 Meds/Results Medications: Active Medications Generic Name Dose Route Start Last Admin Trade Name Freq PRN Reason Stop Dose Admin Acetaminophen 650 mg 09/07/24 17:17 Acetaminophen 325 Mg Tablet BY MOUTH Q6H PRN Mild Pain (1-3) or Fever Albuterol 2 puff 09/07/24 14:39 Albuterol Sulfate (*Sp) Aerosol 1 Puff INHALATION Q4H PRN shortness of breath or wheezing Bumetanide 2 mg 09/09/24 13:14 Bumetanide Inj 1 Mg/4 Ml Vial IV PUSH 09/09/24 13:15 ONCE ONE Bupropion HCl 100 mg 09/07/24 17:00 09/09/24 09:39 Bupropion Hcl 100 Mg Tablet PO 100 mg BID AILYN Administration Enoxaparin Sodium 40 mg 09/08/24 09:00 09/09/24 09:40 Enoxaparin 40 Mg/0.4 Ml Syringe SUB-Q Not Given DAILY AILYN Ibuprofen 800 mg in 200 mls @ 400 mls/hr 09/07/24 14:39 09/08/24 21:50 Caldolor 800 Mg/200 Ml IVPB Infused Q6H PRN Infusion Breakthrough Pain Rated 1-3 or NPO Linaclotide 290 mcg 09/08/24 06:30 09/09/24 05:31 Linaclotide 145 Mcg Capsule PO 290 mcg DAILY@0630 AILYN Administration Lorazepam 1 mg 09/07/24 14:39 Lorazepam (*Crx) 1 Mg Tablet PO DAILY PRN anxiety Magnesium Oxide 400 mg 09/07/24 18:00 09/08/24 16:57 Magnesium Oxide 400 Mg Tablet PO 400 mg EVENING AILYN Administration Melatonin 3 mg 09/07/24 21:00 09/08/24 21:22 Melatonin 3 Mg Tablet PO 3 mg HS AILYN Administration Morphine Sulfate 2 mg 09/07/24 14:39 09/08/24 00:48 Morphine Sulfate (*Crx) 2 Mg/Ml Inj IV PUSH 2 mg Q2H PRN Administration Breakthrough Pain Rated 4-6 or NPO Morphine Sulfate 6 mg 09/08/24 09:10 09/08/24 13:15 Morphine Sulfate (*Crx) 4 Mg/Ml Inj IV PUSH 6 mg Q2H PRN Administration Breakthrough Pain Rated 7-10 or NPO Naloxone HCl 0.1 mg 09/07/24 14:39 Naloxone Hcl 0.4 Mg/Ml Vial IV PUSH Q2M PRN Opiate Reversal Oxycodone HCl 10 mg 09/08/24 09:10 09/09/24 09:39 Oxycodone Hcl (*Crx) 5 Mg Tab Ir PO 10 mg Q4H PRN Administration Pain Rated 7-10 Paroxetine HCl 20 mg 09/07/24 17:00 09/09/24 09:39 Paroxetine 20 Mg Tablet PO 20 mg BID AILYN Administration Polyethylene Glycol 17 gm 09/08/24 09:00 09/09/24 09:40 Polyethylene Glycol 3350 17 Gm Powd.Pack PO Not Given QAM AILYN Potassium Chloride 20 meq 09/09/24 13:14 Potassium Chloride 20 Meq Packet (For Liquid) PO 09/09/24 13:15 ONCE ONE Potassium Chloride 20 meq 09/09/24 17:00 Potassium Chloride 20 Meq Packet (For Liquid) PO BID AILYN Prochlorperazine Edisylate 10 mg 09/07/24 22:40 09/08/24 05:11 Prochlorperazine Edisylate 10 Mg/2 Ml Vial IV PUSH 10 mg Q6H PRN Administration Nausea And Vomiting Senna/Docusate Sodium 2 tab 09/07/24 21:00 09/08/24 21:22 Senna/Docusate Sodium Tablet PO 2 tab HS AILYN Administration Temazepam 15 mg 09/07/24 14:39 Temazepam (*Crx) 15 Mg Capsule PO QHS PRN sleep Valacyclovir HCl 2,000 mg 09/07/24 14:39 Valacyclovir Hcl 500 Mg Tablet PO Q12H PRN BREAKOUT ON NOSE Radiology Results: ITS Impressions Chest X-Ray 09/08/24 10:09 IMPRESSION: 1. Opacities at the bilateral lower lung zones consistent with atelectasis and/or pneumonia possibly with associated small pleural effusions. Labs Labs: Laboratory Results - last 24 hr 09/09/24 04:55 WBC 5.2 RBC 3.70 L Hgb 10.3 L Hct 35.8 L MCV 96.8 D MCH 27.8 MCHC 28.8 L RDW 14.9 H Plt Count 193 MPV 10.7 H Sodium 140 Potassium 3.9 Chloride 105 Carbon Dioxide 31 H Anion Gap 4 BUN 6 L Creatinine 0.65 L Estim Creat Clear Calc Not Reportable Estimated GFR > 60 Glucose 102 Calcium 8.7
[2024-09-09] MEDS: BUMETANIDE INJ 2.5 MG/10 ML VIAL 2 MG IV PUSH (13:48)
[2024-09-09] MEDS: POTASSIUM CHLORIDE 20 MEQ PACKET (FOR LIQUID) PO ×2 (13:49→18:06)
[2024-09-09 14:49] VITALS: TEMP 36.6
[2024-09-09 15:24] VITALS: BP 111/67; PULSE 96; RESP 20; TEMP 36.6; O2SAT 96
[2024-09-09] MEDS: MAGNESIUM OXIDE 400 MG TABLET PO (18:05)
[2024-09-09 18:11] VITALS: O2SAT 96
[2024-09-09] MEDS: MELATONIN 3 MG TABLET PO (22:06)
[2024-09-09] MEDS: SENNA/DOCUSATE SODIUM TABLET 2 TAB PO (22:06)
[2024-09-09 22:17] VITALS: BP 131/77; PULSE 105; RESP 16; TEMP 36.3; O2SAT 94
[2024-09-10] MEDS: oxyCODONE HCL (*CRX) 5 MG TAB IR 10 MG PO ×2 (02:56→09:15)
[2024-09-10] MEDS: LINACLOTIDE 145 MCG CAPSULE 290 MCG PO (05:30)
[2024-09-10 06:00] VITALS: BP 111/70; PULSE 86; RESP 16; TEMP 36.6; O2SAT 93
[2024-09-10 06:00] LABS: Hematocrit 33.6 % (37.0-47.0); Hemoglobin 10.6 g/dL (12.0-15.0); Mean Corpuscular HGB Conc 31.5 g/dl (32-36); Mean Corpuscular Hemoglobin 27.5 pg (26-34); Mean Platelet Volume 11.1 fl (7.4-10.4); Platelet Count Result 232 k/mm3 (150-375); Red Blood Count 3.86 M/mm3 (4.2-5.4); Red Cell Distribution Width 14.7 % (11.5-14.5)
[2024-09-10 06:02] LABS: Anion Gap 6 mmol/L (4-12); Blood Urea Nitrogen 4 mg/dL (7-17); Calcium 8.6 mg/dL (8.4-10.2); Carbon Dioxide 29 mmol/L (22-30); Chloride 101 mmol/L (98-107); Estimated Glomerular Filt Rate > 60; Glucose 108 mg/dL (65-110); Potassium 3.5 mmol/L (3.4-5.0); Sodium 136 mmol/L (137-145)
--- NOTE | 2024-09-10 07:51 | P.DS_ITS ---
DS: Admitting Diagnosis Discharge Date 09/10/2024 Admitting Diagnosis * Hiatal hernia * GERD * Chronic constipation * Alcohol use disorder in remission * Bipolar affective disease DS: Discharge Diagnosis Discharge Diagnosis (1) History of repair of hiatal hernia: Onset Date: 08/2024 Code(s): Z98.890 - Other specified postprocedural states; Z87.19 - Personal history of other diseases of the digestive system Status: Acute (2) Hiatal hernia: Code(s): K44.9 - Diaphragmatic hernia without obstruction or gangrene Status: Chronic (3) GERD (gastroesophageal reflux disease): Qualifiers: Esophagitis presence: without esophagitis Qualified Code(s): K21.9 - Gastro-esophageal reflux disease without esophagitis Code(s): K21.9 - Gastro-esophageal reflux disease without esophagitis Status: Chronic (4) Chronic constipation: Code(s): K59.09 - Other constipation Status: Acute (5) Alcohol use disorder in remission: Code(s): F10.91 - Alcohol use, unspecified, in remission Status: Chronic (6) Bipolar disorder: Qualifiers: Active/Remission status: remission status unspecified Qualified Code(s): F31.9 - Bipolar disorder, unspecified Code(s): F31.9 - Bipolar disorder, unspecified Status: Chronic DS: Summary Hospital Course Hospital Course: After extensive preoperative workup, patient was taken to surgery on 09/07/2024. She underwent robotic laparoscopic repair of a large hiatal hernia with partial fundoplication and fund open axes. She did well after surgery. She had typical amounts of pain some of which was pleuritic. EKG and cardiac enzymes were checked as well as chest x-ray and ABGs. These were centrally negative and it is felt that this pain was postsurgical. She improved significantly on postop day 2. She was much more comfortable. She was still requiring 2 L of oxygen. She did not have any heartburn or dysphagia following surgery. She was tolerating full liquids well. We discontinued her oxygen on the day of discharge and she had saturations in the 90%. She was comfortable on oral analgesics and ambulating independently. She is discharged now on postop day 3. In good condition. Status at Discharge Functional status at discharge: independent ambulation Overall status at discharge: patient is progressing back to baseline Time Spent with Patient Time attestation: Total time spent providing and/or coordinating discharge services: Time spent: Less than 30 minutes DS: Data Data Completed and Pending Labs on day of discharge: Labs from last 24 hours 09/10/24 05:22 WBC 6.0 RBC 3.86 L Hgb 10.6 L Hct 33.6 L MCV 87.0 D MCH 27.5 MCHC 31.5 L RDW 14.7 H Plt Count 232 MPV 11.1 H Sodium 136 L Potassium 3.5 Chloride 101 Carbon Dioxide 29 Anion Gap 6 BUN 4 L Creatinine 0.66 L Estim Creat Clear Calc Not Reportable Estimated GFR > 60 Glucose 108 Calcium 8.6 Discharge Plan Discharge Attending physician on discharge: Keyur Belle Discharging Clinician: Keyur Belle Anticipated Discharge Date/Time: 09/10/24 07:57 Patient Disposition: Home Activity: may shower, no straining and as tolerated Diet: other - see discharge instructions Wound Care Instructions: incision open to air Discharge Instructions: * Ambulate 3-4 x per day and as tolerated. * No lifting over 15-20lbs. * May bathe or shower. * Stairs are OK. * May drive a car in 3 days. * Stay on full liquid diet for 2 weeks. Try to get at least 20 g of protein in every day. Patient Instructions: Antibiotic Form Patient Language: Omani Stand Alone Forms: General Discharge Information Follow-up/Referrals: Keyur Belle MD [Physician] - 2 Weeks Discharge Medications: New oxycodone 5 mg/5 mL solution 5 mg PO Q6H PRN (Reason: pain) Qty: 100 0RF sennosides-docusate sodium [Senokot-S] 8.6-50 mg Tablet 2 tab PO HS Qty: 10 0RF polyethylene glycol 3350 [Miralax] 17 gram Powder In Packet 17 g PO QAM Qty: 15 0RF acetaminophen 500 mg/15 mL liquid 1,000 mg PO Q6H PRN (Reason: pain) Qty: 237 0RF potassium chloride 20 mEq/15 mL liquid 20 meq PO DAILY Qty: 200 0RF Continued Vraylar 1.5 mg capsule 1.5 mg PO BID albuterol sulfate 90 mcg/actuation HFA aerosol inhaler 2 inh inhalation Q4H PRN (Reason: shortness of breath or wheezing) Qty: 8.5 0RF naltrexone 50 mg tablet 50 mg PO BID Qty: 60 5RF bupropion HCl 100 mg tablet 100 mg PO BID Rx Instructions: administer 6 hours apart valacyclovir 1 gram tablet 2,000 mg PO Q12H PRN (Reason: BREAKOUT ON NOSE) magnesium 500 mg Tablet 500 mg PO .PM melatonin 1.5 mg Tablet 3 mg PO HS lorazepam 0.5 mg tablet 1 mg PO DAILY PRN (Reason: anxiety) paroxetine HCl 20 mg tablet 20 mg PO BID Qty: 180 0RF temazepam 15 mg capsule 15 mg PO QHS PRN (Reason: sleep) Qty: 30 3RF linaclotide 290 mcg capsule 290 mcg capsule 0RF Discontinued omeprazole 40 mg capsule,delayed release(DR/EC) See Rx Instructions .ROUTE .COMPLEX Qty: 180 2RF Dose Instruction: TAKE 1 CAPSULE BY MOUTH TWICE A DAY Rx Instructions: TAKE 1 CAPSULE BY MOUTH TWICE A DAY Date of admission: 09/08/24 13:30 Primary Care Provider: Davon Hicks Admitting Provider: Keyur Belle Attending physician on admission: Keyur Belle Condition: Improved
[2024-09-10] MEDS: buPROPion HCL 100 MG TABLET PO (09:16)
[2024-09-10] MEDS: PARoxetine 20 MG TABLET PO (09:16)
[2024-09-10] MEDS: polyethylene glycoL 3350 17 GM POWD.PACK PO (09:16)
[2024-09-10] MEDS: POTASSIUM CHLORIDE 20 MEQ PACKET (FOR LIQUID) PO (09:16)
[2024-09-10] MEDS: ENOXAPARIN 40 MG/0.4 ML SYRINGE SUB-Q (09:17)
[2024-09-10 10:48] VITALS: PULSE 86; RESP 16; O2SAT 93
== END 2024-09-10 10:20 | disposition home or self-care (01) | DRG 328 ==
LOC: ANHSURGERY 15:13 → ANH3MED 15:13
PROVIDERS: Admitting Provider Surgery; PCP Family Medicine Adolescent Medicine; Visit Provider Surgery
PROC: 0DV44ZZ Restriction of Esophagogastric Junction, Percutaneous Endoscopic Approach (ICD-10-PCS; CPT 43280; principal; 2024-09-07 09:30)
DX: K44.9 Diaphragmatic hernia without obstruction or gangrene (principal); K21.9 Gastro-esophageal reflux disease without esophagitis; I10 Essential (primary) hypertension; D64.9 Anemia, unspecified; F41.9 Anxiety disorder, unspecified; K58.9 Irritable bowel syndrome, unspecified; J45.909 Unspecified asthma, uncomplicated; K59.01 Slow transit constipation; F31.9 Bipolar disorder, unspecified; F10.91 Alcohol use, unspecified, in remission; F17.290 Nicotine dependence, other tobacco product, uncomplicated; F17.210 Nicotine dependence, cigarettes, uncomplicated; Z90.49 Acquired absence of other specified parts of digestive tract; Z90.722 Acquired absence of ovaries, bilateral; E66.9 Obesity, unspecified; Z68.29 Body mass index [BMI] 29.0-29.9, adult
CPT/HCPCS: 36415; 36600; 71046; 80048; 82550; 82553; 82805; 84484; 85018; 85027; 93005; A9270; J0690; J0780; J1100; J1650; J1741; J1939; J2003; J2250; J2270; J2371; J2405; J2704; J3010; J7030; J7120

== ENCOUNTER 2025-02-12 00:46 | Day surgery (SDC) | payer OTHER, SELFPAY ==
[2025-02-04 11:48] VITALS: BMI 26.2
--- OUTSIDE RECORDS SUMMARY | 2025-02-12 00:49 | XMS_ITS | Patient Health Record ---
Author Organization [facility] Address [address] [place] [address] Care Team Providers Care Rollout Manager Name Role Phone Salena Dorsey Primary Care Provider [phone] Allergies No Known Allergies Reason For Referral No Information Medications Medication SIG (Take, Route, Fr equency, Duration) Notes Start Date End Date Status Naltrexone HCl 50 MG TAKE 1 TABLET BY [facility] DAILY. START TAKING ONCE DAILY AT BEDTIME AFTER FINISHING COURSE OF LIBRIUM Oral; Duration: 30 Days Active Cetirizine HCl 10 MG 1 tablet Orally Onc e a day; Duration: 14 days 08/13/2022 Active buPROPion HCl 100 MG Oral; Duration: 90 Days Active Omeprazole 40 MG TAKE 1 CAPSULE BY [facility] TWICE A DAY Oral; Duration: 90 Days Acti ve PARoxetine HCl 20 MG Oral; Duration: 90 Days Active Topiramate 100 MG Oral; Duration: 90 Days Active Social History Tobacco Use: Social History Observation Description Date Details (start date - stop date) Unknown Sex Assigned At : Social History Observation Description Sex Assigned At Female Dont use, Tobacco Use/Smoking Question Answer Notes Are you a Uses tobacco in other forms Problems Problem Type SNOMED Code ICD Code Onset Dates Problem Status W/U Status Risk Notes Problem Obesity (374027199) Obesity (BMI 30-39.9) (E66.9) Active confirmed Plan Of Treatment No Information Insurance Providers Payer Name Payer Address Payer Phone Subscriber Number Group Number Insured Name Patient Relationship to Insured Coverage Start Date Coverage End Date [facility] [address] [address] [place] [address] [id number] Anastasiia Troncoso Self - patient is the insured 3 Medical (General) History Medical History History ICD Code Alcohol use disorder Surgical History Surgery Date(Month/Year) Ovary removal 04/2012 Hospitalization History Reason Date(Month/Year) Slit wrist 05/2000 Slit wrist 12/2004 Slit wrist 04/2009
--- OUTSIDE RECORDS SUMMARY | 2025-02-12 00:49 | XMS_ITS | Clinical Summary ---
Author Organization [facility] Address [facility] [place] [address] Care Team Providers Care Retail Loss Prevention Investigator Name Role Phone Rosi Bolanos MD Primary [...] Vaccines (1 of 2) 02/27/2016 COVID-19 Vaccine (1 - 2023-2 5 season) 2024 Influenza Adult (#1) 2025 Hepatitis A Vaccines Aged Out No long er eligible based on patient's age to complete this topic Meningococcal B Vaccine Aged Out No l onger eligible based on patient's age to complete this topic Meningococcal Vaccine Aged Out No oziel koki eligible based on patient's age to complete this topic RSV Immunizations Under 20 Months Aged Out No longer eligible based on patient's age to complete this topic Care Teams Retail Loss Prevention Investigator Relationship Specialty Start Date End Date Rosi Bolanos MD [address] [place] [phone] PCP - General 06/11/10
[2025-02-12 11:18] VITALS: BP 121/78; PULSE 97; RESP 18; TEMP 36.6; O2SAT 98
[2025-02-12] MEDS: LACTATED RINGERS 1,000 ML 150 ML IV CONT (11:26)
--- NOTE | 2025-02-12 11:34 | WPDANESEPPF ---
Anes - Initial Pre Proc Eval Procedure: Operation Date: 02/12/25 12:45 Proposed Procedures p Diagnostic Colonoscopy - Moo Davalos MD Date/Time: 02/12/25 11:34 Surgeon: Moo Davalos MD Pre Op Diagnosis: Irritable bowel syndrome, unspecified Patient Data Age: 59 Gender: F Height: 1.5 m Weight: 60.4 kg Last Vital Signs Temp 36.6 C 02/12/25 11:18 Pulse 97 02/12/25 11:18 Resp 18 02/12/25 11:18 BP 121/78 02/12/25 11:18 Pulse Ox 98 02/12/25 11:18 O2 Del Method Room Air 02/12/25 11:18 Allergies Allergy/AdvReac Type Severity Reaction Status Date / Time No Known Allergies Allergy Mild Verified 02/12/25 11:18 Home Medications ?Medication ?Instructions ?Recorded ?Confirmed ?Type bupropion HCl 100 mg tablet 100 mg PO BID 08/03/21 02/04/25 History paroxetine HCl 20 mg tablet 20 mg PO BID #180 tabs 04/06/23 02/04/25 Rx magnesium 500 mg tablet 500 mg PO .PM 09/22/23 02/04/25 History melatonin 1.5 mg tablet 3 mg PO HS 09/22/23 02/04/25 History valacyclovir 1 gram tablet 2,000 mg PO Q12H PRN BREAKOUT ON 12/07/23 02/04/25 History NOSE albuterol sulfate 90 mcg/actuation 2 inh inhalation Q4H PRN shortness 05/30/24 02/04/25 Rx aerosol inhaler of breath or wheezing #8.5 grams lorazepam 0.5 mg tablet 1 mg PO DAILY PRN anxiety 08/27/24 02/04/25 History linaclotide 290 mcg capsule 290 mcg PO QAM #90 caps 10/09/24 02/04/25 Rx (Linzess) aripiprazole 10 mg tablet (Abilify) 10 mg PO DAILY 01/17/25 02/04/25 History prucalopride 2 mg tablet 2 mg PO DAILY #90 tabs 01/17/25 02/04/25 Rx (Motegrity) Patient hx anesthesia problems: none Family hx anesthesia problems: none Results Review: All pre-operative results and documents have been reviewed as part of the pre-operative evaluation. [facility] Past Medical History Medical History IBS (irritable bowel syndrome) Hypertension GERD (gastroesophageal reflux disease) Anemia Asthma Non-cardiac chest pain Anxiety Surgical History Surgical History History of repair of hiatal hernia (08/2024) Laparoscopic History of laparoscopic cholecystectomy (11/2023) Hx of breast reduction, elective ~ 2003 History of rectal surgery prolapse repair History of oophorectomy Bilateral at age 39 Family History Family History Mother Family history of Alzheimer's disease Sibling Heart disease 2 brothers with CAD and quadruple bypasses in their 50s Other Hypertension Social History Social History (Updated 02/12/25 @ 11:36 by Wei Fiore MD) Smoking packs per day: 0.3 Smoking cigarettes per day: 6.0 Years smoked: 20 Smoking pack-years: 6.00 Smoking status: Former smoker Tobacco type: cigarettes and e-cigarettes/vaping Second hand tobacco smoke exposure: Yes Additional smoking assessment comments: vaping 10 yrs - Has quit smoking/vaping since 3 months Alcohol intake: former Alcohol use details: Sober for 8 months Substance use: former Substance use type: inhalants Other substance usage details: vaping Do You Feel Safe in your Home?: Yes Lack of Transportation: No Lack of Food: Never True Current Housing: I Have Housing Concerned About Future Housing: No Difficulty Paying Gas/Electric Bills: No Difficulty Paying for Meds: No Currently Unemployed: No Education: Trade/Vocational Certificate Difficulty w/ Childcare or Family Care: No Living arrangements: with family Additional living arrangements comments: Gender identity (if verbalized by the patient): Female Sexual Orientation (if Verbalized by the Patient): Lesbian, Mondragon, or Homosexual Spiritual care concerns: No Agree to blood products: Yes Anes - Eval Final PreProcedure Day of Procedure 02/12/25 11:34 Patient weight: overweight Heart: regular rate and rhythm Lungs: clear to auscultation Airway: Mallampati scale class II Neurological: alert and oriented Last oral intake: >/= 8 hours ASA classification: III Emergent: no Anesthetic plan: proceed Anesthesia type and monitoring: general GIVS and standard monitoring Results Review: All pre-operative results and documents have been reviewed as part of the pre-operative evaluation. Informed Consent: The patient's anesthetic plan and its attendant risks and benefits were discussed with the patient/family/POA. Questions were solicited and answers provided to the satisfaction of the patient/family/POA.
--- NOTE | 2025-02-12 12:35 | WPDHPUPDATE1 ---
History and Physical Update Update Date/Time: 02/12/25 12:35 History and Physical has been reviewed, including an updated exam of the patient. There are NO changes in the patient's condition. Risks, benefits, and alternatives have been discussed and questions answered. Patient agrees to proceed with procedure.
--- NOTE | 2025-02-12 12:51 | S_PTH ---
PATIENT: Karen Troncoso LOC: [facility] Sheets#:[id number] AGE/SX: 59/F ROOM: RE02/12/[address]: Moo Davalos MD : 1965 BED: DIS: 02/12/2025 SPEC #: [id number] RECD: 02/12/25 12:59 STATUS: DAVID REQ #: [id number] ROZ: 02/12/25 12:[address]: Moo Davalos DEPT: [facility] Surgical RECD BY: Abby Onofre ENTERED: 02/12/25 12:59 SP TYPE: Surgical OTHR DR: Katie Ohara, [facility]ER[facility] Tissues: A - Colon Polypectomy Procedures: Hematoxylin and Eosin Stain Gross and Microscopic Level 4
[2025-02-12 12:54] VITALS: BP 96/54; PULSE 82; RESP 17; O2SAT 96
[2025-02-12 13:04] VITALS: BP 103/58; PULSE 75; RESP 17; O2SAT 100
[2025-02-12 13:14] VITALS: BP 98/62; PULSE 81; RESP 21; O2SAT 100
== END 2025-02-12 13:29 | disposition home or self-care (01) ==
PROVIDERS: PCP Nurse Practitioner Family; Referring Provider Internal Medicine Gastroenterology; Visit Provider Internal Medicine Gastroenterology
PROC: 0DJD8ZZ Inspection of Lower Intestinal Tract, Via Natural or Artificial Opening Endoscopic (ICD-10-PCS; CPT 45378; principal; 2025-02-12 12:45)
DX: Z12.11 Encounter for screening for malignant neoplasm of colon (principal); D12.3 Benign neoplasm of transverse colon; K21.9 Gastro-esophageal reflux disease without esophagitis; K58.9 Irritable bowel syndrome, unspecified; K59.04 Chronic idiopathic constipation; M62.89 Other specified disorders of muscle; I10 Essential (primary) hypertension; D64.9 Anemia, unspecified; J45.909 Unspecified asthma, uncomplicated; F41.9 Anxiety disorder, unspecified; F17.290 Nicotine dependence, other tobacco product, uncomplicated; Z79.51 Long term (current) use of inhaled steroids; Z98.890 Other specified postprocedural states; Z90.49 Acquired absence of other specified parts of digestive tract; Z82.49 Family history of ischemic heart disease and other diseases of the circulatory system
CPT/HCPCS: 45385; 88305; J2003; J2704; J7120